=== PATIENT | male | born 1995 | race Two or more races ===

== ENCOUNTER 2022-09-01 21:09 | Emergency (ER) | payer MEDICAID, SELFPAY ==
[2022-09-01] VITALS (11 sets, daily range): BP systolic 159–179; BP diastolic 86–116; PULSE 110–129; RESP 14–16; TEMP 36.2; O2SAT 94–99
--- NOTE | 2022-09-01 21:36 | ED.GENADULT ---
HPI - General Adult General Chief complaint: Overdose Stated complaint: Weakness,Diziness Time Seen by Provider: 09/01/22 21:22 History of Present Illness HPI narrative: 27-year-old young man accompanied by his dad with initial concern presented as overdose however it appears that he is really and withdrawal. This is what Modesta tells me in any case. Took a couple tabs of fentanyl of uncertain mg last yesterday about 24 hours ago and unable to find more today and with some interest in sobriety has been having racing heart vomiting diarrhea abdominal cramps today. Last had Suboxone about 2 years ago he thinks. Out of treatment about a year and a half ago. Has been using for at least the last 5 months. Father is aware more recently. Has been more lately staying with dad. Denies any other ingestions recently. Did overdose once in the past and was found by bystander. Does not sound as though this is occurred recently. Took last clonidine 3 days ago. Related Data Home Medications Medication Instructions Recorded Confirmed clonidine HCl 0.2 mg tablet mg 09/01/22 methimazole 10 mg tablet mg 09/01/22 metoprolol succinate 25 mg mg PO 09/01/22 tablet,extended release 24 hr propranolol 20 mg tablet mg 09/01/22 Previous Rx's Medication Instructions Recorded buprenorphine 4 mg-naloxone 1 mg 1 film sublingual DAILY opiate 09/02/22 sublingual film (Suboxone) withdrawal #8 ea clonidine HCl 0.2 mg tablet 0.2 mg PO BID PRN withdrawal 09/02/22 symptoms #20 tabs ondansetron 4 mg disintegrating 4 mg PO Q4-6H PRN nausea and 09/02/22 tablet vomiting #15 tabs trazodone 50 mg tablet 50 - 100 mg PO QHS PRN sleep #15 09/02/22 tabs Allergies Allergy/AdvReac Type Severity Reaction Status Date / Time No Known Drug Allergies Allergy Verified 09/01/22 21:47 Review of Systems Status of ROS: Reports: 6 or more systems reviewed and unremarkable except as noted in History and below PFSH PFSH Social History Smoking Status: Current every day smoker What tobacco products do you use: cigarettes Do you use any of these nicotine containing products: Vaping Products How often do you have a drink containing alcohol: never How often do you have six or more drinks on one occasion: Never AUDIT-C Alcohol total score: 0 Non-prescribed substance use: opiods/painkillers service: No Exam Narrative: Exam Narrative: Rather thin. Alert and supporting own airway. Oropharynx is sticky. There are some subtle tattoo id blue points at right upper eyelid. Prominently though similarly colored vasculature on the left eyelid. Pupils are brisk and reactive, not constricted. There is rhinorrhea. Lungs appear to be clear. Tachypneic. He is tachycardic in a regular rhythm. Abdomen is flat soft and generally moderately tender. No masses appreciated. Extremities are also thin and without edema. Skin is little clammy in locations. Gooseflesh evident. Const: Vital Signs, click to edit/add: Vital Signs - 24 hr 09/01/22 21:19 09/01/22 21:57 09/01/22 22:30 Temperature 97.2 F L Pulse Rate Pulse Rate [Pulse Oximeter] 113 H Respiratory Rate 16 Blood Pressure Blood Pressure [Ri ght Upper Arm] 159/95 H 167/93 H Pulse Oximetry 97 99 96 Oxygen Delivery Ok thod Room Air Room Air 09/01/22 22:00 09/01/22 21:45 09/01/22 21:30 Temperature Pulse Rate Pulse Rate [Pulse Oximeter] 110 H 111 H 115 H Respiratory Rate 14 16 16 Blood Pressure Blood Pressure [Ri ght Upper Arm] 161/86 H 166/100 H 165/105 H Pulse Oximetry 98 98 94 Oxygen Delivery Ok thod Room Air Room Air Room Air 09/01/22 21:20 09/01/22 23:17 09/01/22 23:21 Temperature Pulse Rate 117 H 120 H Pulse Rate [Pulse Oximeter] 125 H Respiratory Rate 16 Blood Pressure 179/101 H Blood Pressure [Ri ght Upper Arm] 176/116 H Pulse Oximetry 96 98 98 Oxygen Delivery Ok thod Room Air Room Air 09/01/22 23:30 09/01/22 23:31 09/02/22 00:00 Temperature Pulse Rate 122 H 129 H 121 H Pulse Rate [Pulse Oximeter] Respiratory Rate Blood Pressure 164/98 H Blood Pressure [Ri ght Upper Arm] Pulse Oximetry 97 98 97 Oxygen Delivery Ok thod Room Air 09/02/22 00:02 09/02/22 01:31 09/02/22 03:13 Temperature Pulse Rate 137 H Pulse Rate [Pulse Oximeter] 131 H 115 H Respiratory Rate 22 22 Blood Pressure 166/118 H Blood Pressure [Ri ght Upper Arm] 154/102 H 166/108 H Pulse Oximetry 99 98 Oxygen Delivery Me thod Room Air Documenting provider has reviewed patient's vital signs: yes Course Vital Signs Vital signs: Initial Vital Signs Temperature 97.2 F L 09/01/22 21:19 Temperature Source Temporal Artery Scan 09/01/22 21:19 Blood Pressure 159/95 H 09/01/22 21:19 Blood Pressure Mean 116 09/01/22 21:19 Blood Pressure Position Sitting 09/01/22 21:19 Pulse Oximetry 97 09/01/22 21:19 Oxygen Delivery Method 09/01/22 21:19 Vital Signs Temperature 97.2 F L 09/01/22 21:19 Blood Pressure 159/95 H 09/01/22 21:19 Pulse Oximetry 97 09/01/22 21:19 Oxygen Delivery Method 09/01/22 21:19 Temperature 97.2 F L 09/01/22 21:19 Pulse Rate 115 H 09/02/22 03:13 Respiratory Rate 22 09/02/22 03:13 Blood Pressure 166/108 H 09/02/22 03:13 Pulse Oximetry 98 09/02/22 01:31 Oxygen Delivery Method 09/02/22 01:31 Medical Decision Making MDM Narrative Medical decision making narrative: We discussed locating supported detox. Tato has detoxed he says in [place] and believe another location this [facility]. He is not willing to go to detox preferring to do this at home at this time. We had discussed potential Suboxone dosing. He says further that he is done with this, wanting nothing more to do with opiates otherwise. Just takes everything from you he says. 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 Does appear to be withdrawing; I do not see evidence of overdose. He does vomit here in the emergency department. IV fluids are given. And over time given a couple of doses of lorazepam along with hyoscyamine, Zofran and hydroxyzine and propranolol. Remains moderately tachycardic during time in the emergency department as well as hypertensive. Appears uncomfortable but stable. After longer conversation with Tato and his dad he would be interested in having Suboxone available. I am willing to prescribe a few days of this but would recommend location of next prescription in outpatient setting before he initiates his treatment. He expressed appropriate concern as would have to taper or withdraw from this as well. He may instead prefer to cold turkey this withdrawal with the propranolol he has available along with antiemetics and/or refilled clonidine. I also provided naloxone prescriptions. Lab Data Lab results reviewed: Yes I reviewed the patient's lab results Labs: Lab Results 09/01/22 09/01/22 09/02/22 Range/Units 21:25 21:25 01:10 VBG pH 7.502 H (7.32-7.43) VBG pCO2 33 L (40-50) mmHG VBG pO2 65.4 H (25-47) mmHG VBG HCO3 26 (21-28) mmol/L Sodium 139 (135-149) mmol/L Potassium 3.2 L (3.6-5.1) mmol/L Chloride 105 (96-114) mmol/L Carbon Dioxide 24 (20-32) mmol/L BUN 13 (5-24) mg/dL Creatinine 0.4 L (0.5-1.5) mg/dL Estimated GFR 152 ml/min Glucose 135 H (60-115) mg/dL Calcium 9.7 (8.4-10.6) mg/dL Magnesium 1.6 (1.5-2.6) mg/dL Total Bilirubin 0.8 (0.1-1.5) mg/dL Direct Bilirubin 0.1 (0.0-0.5) mg/dL AST 30 (12-35) U/L ALT 35 (4-50) U/L Alkaline Phosphatase 140 (40-150) U/L Total Protein 7.6 (6.0-8.3) g/dL Albumin 4.3 (3.3-5.0) g/dL Urine Opiates Screen Negative (Negative) Ur Oxycodone Screen Negative (Negative) Urine Methadone Screen Negative (Negative) Ur Propoxyphene Screen Negative (Negative) Ur Barbiturates Screen Negative (Negative) U Tricyclic Antidepress Negative (Negative) Ur Phencyclidine Scrn Negative (Negative) Ur Amphetamines Screen Negative (Negative) U Methamphetamines Scrn Negative (Negative) U Benzodiazepines Scrn Negative (Negative) Urine Cocaine Screen Negative (Negative) U Marijuana (THC) Screen Negative (Negative) Ur Drug Screen Comment See Note ECG Data Attestation: I personally reviewed and interpreted this ECG as follows: (Sinus tachycardia at a rate of 115. Amplified signal I would say consistent with thin chest and tachycardia ) Discharge Plan Discharge Clinical Impression: Opiate withdrawal Patient Disposition: Home w/ Parent or Adult Condition: Stable Additional Instructions: I do very much support your efforts at trying to be free of opiates by going cold turkey. I understand you still have propranolol. Am refilling clonidine as an alternative. Zofran dissolvable for nausea. If however you prefer to move toward Suboxone, you are aware that at some point you will likely need to come off the Suboxone as well. Furthermore you will need more dosing. Before you actually initiate treatment with Suboxone, I would recommend having a follow-up clinic appointment in order to continue dosing. See again in the packet of information for phone numbers to call. Suboxone providers/clinics that might be more convenient for you can be located online with a quick search. The Suboxone can be dosed once daily. Would repeat once in 2 hours if intolerable withdrawal symptoms remain. While I am hopeful regarding your efforts at sobriety, please see this packet of information regarding naloxone. You may pick this up and be educated on its use at [facility]. Prescriptions: New clonidine HCl 0.2 mg tablet 0.2 mg PO BID PRN (Reason: withdrawal symptoms) Qty: 20 0RF buprenorphine-naloxone [Suboxone] 4-1 mg film 1 film sublingual DAILY MDD 2 Qty: 8 0RF ondansetron 4 mg tablet,disintegrating 4 mg PO Q4-6H PRN (Reason: nausea and vomiting) Qty: 15 0RF Rx Instructions: dissolve in mouth trazodone 50 mg tablet 50 - 100 mg PO QHS PRN (Reason: sleep) Qty: 15 0RF No Action clonidine HCl 0.2 mg tablet metoprolol succinate 25 mg tablet extended release 24 hr PO methimazole 10 mg tablet propranolol 20 mg tablet Follow Up/Referrals: Provider,Not a Local [Primary Care Provider] - Stand Alone Forms: [facility] Instructions
[2022-09-01] MEDS: 0.9 % SODIUM CHLORIDE 1000 ml 1,000 ML IV ×2 (21:41→23:46)
[2022-09-01 21:45] LABS: HCO3 VBG 26 mmol/L (21-28); PCO2 VBG 33 mmHG (40-50); PO2 VBG 65.4 mmHG (25-47); pH VBG 7.502 (7.32-7.43)
[2022-09-01] MEDS: ONDANSETRON 2 MG/ML inj 4 MG IVP (21:50)
[2022-09-01] MEDS: HYOSCYAMINE SULFATE 0.125 MG TAB 0.25 MG SUBLINGUAL (21:51)
[2022-09-01] MEDS: hydrOXYzine pamoate 25 MG CAPSULE 50 MG PO (21:52)
[2022-09-01] MEDS: LORazepam 2 MG/ML inj 1 MG IVP (21:53)
[2022-09-01 22:52] LABS: Albumin* 4.3 g/dL (3.3-5.0); Chloride* 105 mmol/L (96-114); Potassium* 3.2 mmol/L (3.6-5.1); Sodium* 139 mmol/L (135-149)
[2022-09-01 22:54] LABS: Creatinine* 0.4 mg/dL (0.5-1.5); Estimated Glomerular Filt Rate 152 ml/min
[2022-09-01 22:55] LABS: Alanine Aminotransferase* 35 U/L (4-50); Alkaline Phosphatase* 140 U/L (40-150); Aspartate Amino Transferase* 30 U/L (12-35); Bilirubin Direct* 0.1 mg/dL (0.0-0.5); Bilirubin Total* 0.8 mg/dL (0.1-1.5); Blood Urea Nitrogen* 13 mg/dL (5-24); Calcium* 9.7 mg/dL (8.4-10.6); Carbon Dioxide* 24 mmol/L (20-32); Glucose* 135 mg/dL (60-115); Magnesium* 1.6 mg/dL (1.5-2.6); Total Protein* 7.6 g/dL (6.0-8.3)
[2022-09-02] VITALS: PULSE 121; O2SAT 97
[2022-09-02 00:02] VITALS: BP 166/118; PULSE 137; O2SAT 99
[2022-09-02] MEDS: PROMETHAZINE 25 MG/ML INJ 12.5 MG IVP (00:03)
--- NOTE | 2022-09-02 00:26 | ED.NURSE ---
Patient had a large emesis--700ml. MD updated. Patient continues to be tachycardic
[2022-09-02] MEDS: LORazepam 2 MG/ML inj 1 MG IVP (01:03)
[2022-09-02 01:23] LABS: Amphetamine Screen Urine Negative (Negative); Barbiturate Screen Urine Negative (Negative); Benzodiazepines Screen Urine Negative (Negative); Cannabinoid Screen Urine Negative (Negative); Cocaine Screen Urine Negative (Negative); Methadone Screen Urine Negative (Negative); Methamphetamines Screen Urine Negative (Negative); Opiate Screen Urine Negative (Negative); Oxycodone Screen Urine Negative (Negative); Phencyclidine Screen Urine Negative (Negative); Tricyclic Antidepressant Urine Negative (Negative)
[2022-09-02] MEDS: PROPRANOLOL 20 MG TABLET PO (01:26)
[2022-09-02 01:31] VITALS: BP 154/102; PULSE 131; RESP 22; O2SAT 98
[2022-09-02 03:13] VITALS: BP 166/108; PULSE 115; RESP 22
--- NOTE | 2022-09-02 03:26 | ED.NURSE ---
Patient discharged to home with father. Father provided with paper script for Suboxone, [facility] folder with Narcan prescription and discharge paperwork. They verbalized understanding and all questions were answered.
[2022-09-02] MEDS: ONDANSETRON 2 MG/ML inj 4 MG IVP (06:52)
== END 2022-09-02 03:25 | disposition home or self-care (01) ==
PROVIDERS: Emergency Provider Family Medicine
DX: F11.23 Opioid dependence with withdrawal (principal)
CPT/HCPCS: 36415; 80048; 80076; 80306; 82803; 83735; 94761; 96372; 96374; 96375; 99284; A9270; J2060; J2405; J2550; J7030

== ENCOUNTER 2022-10-22 15:46 | Emergency (ER) | payer MEDICAID, SELFPAY ==
[2022-10-22 15:55] VITALS: BP 148/87; PULSE 98; RESP 16; TEMP 37; O2SAT 95; BMI 21.0
--- NOTE | 2022-10-22 16:11 | ED.GENADULT ---
HPI - General Adult General Chief complaint: Unspecified Complaint, Adult Stated complaint: High BP Time Seen by Provider: 10/22/22 15:53 Source: patient Mode of arrival: ambulatory Limitations: no limitations History of Present Illness HPI narrative: 27-year-old male coming in today requesting a refill of his clonidine 0.2 mg p.o. b.i.d., propanolol 20 mg p.o. b.i.d., and methimazole 10 mg p.o. daily. Patient was just released from [facility] yesterday and states that he was released without any of his medications. He has gone 1 and half days without his medications. Before that he was taking them regularly. He has no concerns today. He does have an appointment scheduled with primary care next Tuesday. Patient does have a history of opioid withdrawals, Graves disease. Related Data Home Medications Medication Instructions Recorded Confirmed clonidine HCl 0.2 mg tablet mg 09/01/22 methimazole 10 mg tablet mg 09/01/22 propranolol 20 mg tablet mg 09/01/22 Previous Rx's Medication Instructions Recorded buprenorphine 4 mg-naloxone 1 mg 1 film sublingual DAILY opiate 09/02/22 sublingual film (Suboxone) withdrawal #8 ea clonidine HCl 0.2 mg tablet 0.2 mg PO BID PRN withdrawal 09/02/22 symptoms #20 tabs ondansetron 4 mg disintegrating 4 mg PO Q4-6H PRN nausea and 09/02/22 tablet vomiting #15 tabs trazodone 50 mg tablet 50 - 100 mg PO QHS PRN sleep #15 09/02/22 tabs clonidine HCl 0.2 mg tablet 0.2 mg PO BID #30 tabs 10/22/22 methimazole 10 mg tablet 10 mg PO DAILY #14 tabs 10/22/22 propranolol 20 mg tablet 20 mg PO BID #30 tabs 10/22/22 Allergies Allergy/AdvReac Type Severity Reaction Status Date / Time No Known Drug Allergies Allergy Verified 09/01/22 21:47 Review of Systems Status of ROS: Reports: 10 or more systems reviewed and unremarkable except as noted in History and below PFSH PFS Social History Smoking Status: Current every day smoker What tobacco products do you use: cigarettes Do you use any of these nicotine containing products: Vaping Products How often do you have a drink containing alcohol: never How often do you have six or more drinks on one occasion: Never AUDIT-C Alcohol total score: 0 Non-prescribed substance use: opiods/painkillers service: No Exam Narrative: Exam Narrative: Well-nourished well-developed patient in no acute distress. Alert and oriented. Answers questions appropriately. Mood and affect are appropriate. Thoughts are goal oriented and rational. No tangential or magical thinking noted. Patient speaks in full sentences without needing to catch his breath. Speech is not slurred or pressured. HEENT: Normocephalic atraumatic. Pupils are equally round reactive to light. Extraocular muscles are intact. He does have exophthalmos bilaterally. Conjunctivae are moist without any icterus noted. Cardiovascular: Heart is regular rate and rhythm Lungs: Clear to auscultation bilaterally Skin: Well perfused without any obvious rashes, multiple tattoos. Const: Vital Signs, click to edit/add: Vital Signs - 24 hr 10/22/22 15:55 Temperature 98.6 F Pulse Rate [Pulse Oximeter] 98 Respiratory Rate 16 Blood Pressure [Le ft Upper Arm] 148/87 H Pulse Oximetry 95 Oxygen Delivery Me thod Room Air Course Vital Signs Vital signs: Initial Vital Signs Temperature 98.6 F 10/22/22 15:55 Temperature Source Temporal Artery Scan 10/22/22 15:55 Pulse Rate 98 10/22/22 15:55 Pulse Rhythm 10/22/22 15:55 Respiratory Rate 16 10/22/22 15:55 Blood Pressure 148/87 H 10/22/22 15:55 Blood Pressure Mean 107 10/22/22 15:55 Blood Pressure Position Sitting 10/22/22 15:55 Pulse Oximetry 95 10/22/22 15:55 Oxygen Delivery Method 10/22/22 15:55 Vital Signs Temperature 98.6 F 10/22/22 15:55 Pulse Rate 98 10/22/22 15:55 Respiratory Rate 16 10/22/22 15:55 Blood Pressure 148/87 H 10/22/22 15:55 Pulse Oximetry 95 10/22/22 15:55 Oxygen Delivery Method 10/22/22 15:55 Temperature 98.6 F 10/22/22 15:55 Pulse Rate 98 10/22/22 15:55 Respiratory Rate 16 10/22/22 15:55 Blood Pressure 148/87 H 10/22/22 15:55 Pulse Oximetry 95 10/22/22 15:55 Oxygen Delivery Method 10/22/22 15:55 Medical Decision Making MDM Narrative Medical decision making narrative: 27-year-old male recently released from [facility] without his medications. Will go ahead and refill them for 2 weeks. That should give him plenty of time as he does have an appointment already scheduled for next week. Patient was agreeable and had no other questions. Discharge Plan Discharge Clinical Impression: Encounter for medication refill Patient Disposition: Home, Self-Care Condition: Stable Additional Instructions: Follow-up with primary care as scheduled. Consider following up with controls engineer as well. Prescriptions: New clonidine HCl 0.2 mg tablet 0.2 mg PO BID Qty: 30 0RF propranolol 20 mg tablet 20 mg PO BID Qty: 30 0RF methimazole 10 mg tablet 10 mg PO DAILY Qty: 14 0RF No Action clonidine HCl 0.2 mg tablet methimazole 10 mg tablet propranolol 20 mg tablet clonidine HCl 0.2 mg tablet 0.2 mg PO BID PRN (Reason: withdrawal symptoms) Qty: 20 0RF buprenorphine-naloxone [Suboxone] 4-1 mg film 1 film sublingual DAILY MDD 2 Qty: 8 0RF ondansetron 4 mg tablet,disintegrating 4 mg PO Q4-6H PRN (Reason: nausea and vomiting) Qty: 15 0RF Rx Instructions: dissolve in mouth trazodone 50 mg tablet 50 - 100 mg PO QHS PRN (Reason: sleep) Qty: 15 0RF Follow Up/Referrals: Provider,Not a Local [Primary Care Provider] - Stand Alone Forms: [facility] Info Instructions
== END 2022-10-22 16:35 | disposition home or self-care (01) ==
LOC: ED 16:23
PROVIDERS: Emergency Provider Family Medicine; PCP Family Medicine
DX: Z76.0 Encounter for issue of repeat prescription (principal)
CPT/HCPCS: 99282; 99283

== ENCOUNTER 2022-12-21 11:55 | Emergency (ER) | payer MEDICAID, SELFPAY ==
[2022-12-21 12:01] VITALS: BP 153/92; PULSE 120; RESP 18; TEMP 36.5; O2SAT 98; BMI 24.4
--- NOTE | 2022-12-21 12:13 | CRLHL7_ITS ---
For Patients: As a result of the Cures Act, medical imaging exams and procedure reports are released immediately into your electronic medical record. You may view this report before your referring provider. If you have questions, please contact your health care provider. INDICATION: Back pain TECHNIQUE: Thoracic spine 3 view COMPARISON: None FINDINGS: Bones: No evidence of fracture. 6 degree rightward curvature of the upper thoracic spine. Joints: Disc spaces and facets are unremarkable. Soft tissues: Unremarkable. IMPRESSION: Mild rightward curvature upper thoracic spine, otherwise unremarkable thoracic spine series. Dictated by Guillermo Jasmine MD @ 12/21/2022 1:20:39 PM (Electronically Signed)
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
[2022-12-21 13:13] VITALS: BP 137/77; PULSE 111; O2SAT 98
== END 2022-12-21 13:37 | disposition home or self-care (01) ==
PROVIDERS: Emergency Provider Family Medicine
DX: M54.6 Pain in thoracic spine (principal)
CPT/HCPCS: 72070; 99283

== ENCOUNTER 2024-03-20 11:06 | Emergency (ER) | payer SELFPAY ==
[2024-03-20 11:10] VITALS: BP 135/78; PULSE 97; RESP 18; TEMP 36.2; O2SAT 96; BMI 26.6
--- NOTE | 2024-03-20 11:36 | CRLHL7_ITS ---
For Patients: As a result of the Cures Act, medical imaging exams and procedure reports are released immediately into your electronic medical record. You may view this report before your referring provider. If you have questions, please contact your health care provider. INDICATION: Low back pain. TECHNIQUE: Lumbar spine two views. COMPARISON: None. FINDINGS: No acute fracture or malalignment. No additional osseous abnormality. Soft tissues as imaged are unremarkable. IMPRESSION: Unremarkable lumbar radiographs. Dictated by Iván Gomez MD @ 03/20/2024 12:02:44 PM (Electronically Signed)
--- NOTE | 2024-03-20 11:43 | ED.BACK ---
HPI - Back Pain/Injury General Date Seen: 03/20/24 Chief Complaint: Back Injury/Pain Stated Complaint: lower back pain Time Seen by Provider: 03/20/24 11:07 Source: patient Mode of arrival: ambulatory Limitations: no limitations History of Present Illness HPI Narrative: Patient is a 28-year-old male presenting to the emergency department for low back pain. Pain is mostly in the left paraspinal muscles but he is having some midline back pain also. States he woke up at about 02:30 with this pain. He tried to take some ibuprofen and Tylenol without any improvement. He laid back down and pain continued into this morning. States he has a history of having sciatic on the past and this feels similar but worse. Denies saddle anesthesia, urinary retention, loss of bowel or bladder control, fevers. Has history of IV drug use but states he has been clean for 8 and half months. 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 Related Data Home Medications ?Medication ?Instructions ?Recorded ?Confirmed methimazole 10 mg tablet 20 mg 09/01/22 propranolol 20 mg tablet mg 09/01/22 Previous Rx's ?Medication ?Instructions ?Recorded ondansetron 4 mg disintegrating 4 mg PO Q4-6H PRN nausea and 09/02/22 tablet vomiting #15 tabs methimazole 10 mg tablet 10 mg PO DAILY #14 tabs 10/22/22 propranolol 20 mg tablet 20 mg PO BID #30 tabs 10/22/22 cyclobenzaprine 10 mg tablet 10 mg PO TID PRN muscle spasm #15 03/20/24 tabs ketorolac 10 mg tablet 10 mg PO Q6H #20 tabs 03/20/24 Allergies Allergy/AdvReac Type Severity Reaction Status Date / Time No Known Drug Allergies Allergy Verified 03/20/24 11:13 Review of Systems Narrative: Pertinent systems reviewed and were negative unless stated in HPI PFSH PFSH Social History Smoking Status: Current every day smoker What tobacco products do you use: cigarettes Do you use any of these nicotine containing products: Vaping Products How often do you have a drink containing alcohol: never How often do you have six or more drinks on one occasion: Never AUDIT-C Alcohol total score: 0 Non-prescribed substance use: opiods/painkillers service: No Exam Narrative: Exam Narrative: Const: Well-nourished, Well-developed, in mild distress Eyes: PERRL, no conjunctival injection, and symmetrical lids HENT: Atraumatic external nose and ears. Moist mucous membranes. MSK:Extremities w/o deformity, Tenderness noted to left paraspinal muscles and also some midline tenderness at about L2 and again At around L4. Skin: Warm, Dry. No rashes or lesions. Neuro: Normal Muscle tone, No focal neurological deficits. Psych: Awake, Alert, & Oriented x3. Appropriate mood and affect. Const: Vital Signs, click to edit/add: Vital Signs - 24 hr 03/20/24 11:10 Temperature 97.2 F L Pulse Rate [Right Pulse Oximeter] 97 Respiratory Rate 18 Blood Pressure [Ri ght Upper Arm] 135/78 Pulse Oximetry 96 Oxygen Delivery Me thod Room Air Course Vital Signs Vital signs: Initial Vital Signs Temperature 97.2 F L 03/20/24 11:10 Temperature Source Temporal Artery Scan 03/20/24 11:10 Pulse Rate 97 03/20/24 11:10 Pulse Rhythm Regular 03/20/24 11:10 Respiratory Rate 18 03/20/24 11:10 Blood Pressure 135/78 03/20/24 11:10 Blood Pressure Mean 97 03/20/24 11:10 Blood Pressure Position Sitting 03/20/24 11:10 Pulse Oximetry 96 03/20/24 11:10 Oxygen Delivery Method Room Air 03/20/24 11:10 Vital Signs Temperature 97.2 F L 03/20/24 11:10 Pulse Rate 97 03/20/24 11:10 Respiratory Rate 18 03/20/24 11:10 Blood Pressure 135/78 03/20/24 11:10 Pulse Oximetry 96 03/20/24 11:10 Oxygen Delivery Method Room Air 03/20/24 11:10 Temperature 97.2 F L 03/20/24 11:10 Pulse Rate 97 03/20/24 11:10 Respiratory Rate 18 03/20/24 11:10 Blood Pressure 135/78 03/20/24 11:10 Pulse Oximetry 96 03/20/24 11:10 Oxygen Delivery Method Room Air 03/20/24 11:10 Medications Administered Medications: Discontinued Medications Generic Name Dose Route Start Last Admin Trade Name Freq PRN Reason Stop Dose Admin Cyclobenzaprine HCl 10 mg 03/20/24 11:36 03/20/24 11:53 Cyclobenzaprine Hcl 10 Mg Tablet PO 03/20/24 11:37 10 mg ONCE ONE Administration Ketorolac Tromethamine 30 mg 03/20/24 11:36 03/20/24 11:52 Ketorolac 30 Mg/Ml Inj IM 03/20/24 11:37 30 mg ONCE ONE Administration MDM - Back Pain/Injury MDM Narrative Medical decision making narrative: patient is a 28-year-old male presenting for low back pain. While most the pain is paraspinal he does have some midline tenderness does do a lot of manual labor. Will do an x-ray to make sure there are no occult fractures. I will also give him Toradol for pain along with Flexeril. he had some mild improvement in his symptoms. X-ray showed no concerning findings. I will discharge him at this time. Most likely a back strain. Imaging Data X-ray lumbar spine: Attestation: I have reviewed the pertinent imaging results. Radiologist's impression: Unremarkable lumbar radiographs. Dictated by Iván Gomez MD @ 03/20/2024 12:02:44 PM Discharge Plan Discharge Clinical Impression: Strain of lumbar region Qualifiers: Encounter type: initial encounter Qualified Code(s): S39.012A - Strain of muscle, fascia and tendon of lower back, initial encounter Patient Disposition: Home, Self-Care Condition: Stable Instructions: Low Back Strain (ED) Additional Instructions: I will prescribe be Toradol and a muscle relaxer for her back pain. do not take ibuprofen or Aleve at the same time you are taking Toradol. Return to emergency department for new or worsening symptoms. Prescriptions: New cyclobenzaprine 10 mg tablet 10 mg PO TID PRN (Reason: muscle spasm) Qty: 15 0RF ketorolac 10 mg tablet 10 mg PO Q6H Qty: 20 0RF Rx Instructions: maximum total duration of 5 days from all oral, intranasal, or parenteral formulations No Action propranolol 20 mg tablet 20 mg PO BID Qty: 30 0RF methimazole 10 mg tablet 10 mg PO DAILY Qty: 14 0RF methimazole 10 mg tablet 20 mg propranolol 20 mg tablet ondansetron 4 mg tablet,disintegrating 4 mg PO Q4-6H PRN (Reason: nausea and vomiting) Qty: 15 0RF Rx Instructions: dissolve in mouth Follow Up/Referrals: Provider,Not a Local [Primary Care Provider] - Stand Alone Forms: [facility] Info Instructions
[2024-03-20] MEDS: KETOROLAC 30 MG/ML inj IM (11:52)
[2024-03-20] MEDS: CYCLOBENZAPRINE HCL 10 MG TABLET PO (11:53)
--- OUTSIDE RECORDS SUMMARY | 2024-03-20 12:06 | XMS_ITS | Clinical Summary ---
Author Organization [facility] Address [place], [place] [address] Care Team Providers Care Court Registry Officer Name Role Phone Velasquez, [facility] - Primary C are Provider Allergies No known active allergies Medications Medication Sig Dispensed Refills Start Date End Date Status cloNIDine HCL (CATAPRES) 0.2 mg tablet Take 0.2 mg by mouth two times daily. Active methIMAzole (TAPAZOLE) 10 mg tablet Take 10 mg by mouth once daily. Active propranoloL (INDERAL) 20 mg tablet Take 20 mg by mouth two times daily. Active Active Problems Problem Noted Date Diagnosed Date SIRS (systemic inflammatory response syndrome) 0 12/31/2022 Tobacco abuse 12/31/2022 Opioid withdrawal 12/28/2022 Thyrotoxicosis 12/28/2022 Immunizations Name Administration Dates Next Due DTaP 09/16/1998,1994 DTaP-HIB (TriHIBIT) 03/15/1995,1994 Hepatitis B (Peds) 1994,1994, 994 Influenza, IIV3 (Age >=3 years) 07/12/2007 Influenza,LAIV3 Live Intrana christopher (Flumist) 06/28/2011 MMR 05/04/2007,09/16/1998 Meningococcal Vaccine (Menactra) 03/12/2009 Oral Polio Vaccine 09/16/1998, 5,1994,07/05 Tdap 03/27/2013,03/22/2006 Varicella Vaccine 05/04/2007,09/16/1998 Social History Tobacco Use Types Packs/Day Years Used Date Smoking Tobacco: Never Assessed Social Connections Answer Date Recorded Frequency of Communication with Friends and Fami ly Not on file 12/28/2022 Sex and Gender Information Value Date Recorded Sex Assigned at Not on file Gender Identity Not on file Sexual Orientation Not on file Obstetrics History Last Filed Vital Signs Vital Sign Reading Time Taken Comments Blood Pressure 150/111 04/27/2023 8:00 PM CDT Pulse 82 04/27/2023 8:00 PM CDT Temperature 37.1 ??C (98.8 ??F) 04/27/2023 6:53 PM CD T Respiratory Rate 17 04/27/2023 6:53 PM CDT Oxygen Saturation 92% 04/27/2023 8:00 PM CDT Inhaled Oxygen Concentration - - Weight 79.4 kg (175 lb) 04/27/2023 6:53 PM CDT Height 175.3 cm (5' 9) 04/27/2023 6:53 PM CDT Body Mass Index 25.84 04/27/2023 6:53 PM CDT Plan of Treatment Health Maintenance Due Date Last Done Comments Depression screening for age 12+ 2006 BMI (ht and wt on same day) for age 18+ 2012 Hepatitis C screening for ag e 18-79 2012 Tetanus booster 03/27/2023 03/27/2013, 03/22/2006 COVID-19 vaccine series ( season) 2023 Influenza for age 9-49 04/15/2024 1, 07/12/2007 Tdap Completed 03/27/2013, 03/22/2006 HIV for age 15-65 Completed 12/29/2022, 10/31/2018 Pneumococcal series for age 6-64 Aged Out No longer eligible b ased on patient's age to complete this topic Medical Devices Implanted Type Area Pantograph Transferrer Device Identifier Shelf Expiration Date Model / Serial / Lot Ancr Sut Sm Bone [id number] Fiberwire - [id number] Implanted:Qty: 1 on 03/13/2009 at [facility] Left: Wrist [employer] 01/13/2013 [id number] / / [id number] Procedures Procedure Name Priority Date/Time Associated Diagnosis Comments LC HIV-1/O/2, 4TH GENERATION APRIL 12/29/2022 11:00 AM CDT from Last 3 Months or Most Recently Relevant to Health Maintenance Results * LC HIV-1/O/2, 4TH GENERATION (12/29/2022 11:00 AM CDT) HIV Scr 4th Gen Non Reactive Non Reactive 12/31/2022 1:09 PM CDT [facility] ([facility]) Comment: HIV Negative HIV-1/HIV-2 antibodies and HIV-1 p24 antigen were NOT detected. There is no laboratory evidence of HIV infection. Blood BLOOD SPECIMEN / Unknown Venipuncture / Unknown 12/29/2022 11:00 AM CDT 12/29/2022 11:06 AM CDT Narrative [facility] ([facility]) - 12/31/2022 1:09 PM CDT Performed at: ??[address] - [address] ??[id number] Motor Transport Inspector: Salas Nunes MD, Phone: ??[phone] Winter Cheney MD LABORATORY [facility] ([facility]) [address] [place] [address] from Last 3 Months or Most Recently Relevant to Health Maintenance Advance Directives * Full Code (Latest Code Status on File) Date Activated Date Inactivated Comments 12/28/2022 9:06 PM 12/30/2022 2:00 AM Question Answer Comments Code Status Discussion: Reviewed Preferences * Full Code Date Activated Date Inactivated Comments 03/13/2009 6:42 AM 03/13/2009 7:45 PM * Full Code Date Activated Date Inactivated Comments 03/11/2009 11:36 AM 03/13/2009 6:[address] Registry Officer Relationship Specialty Start Date End [facility] [address] [place] [id number] PCP - General Family Practice 04/27/23
== END 2024-03-20 13:06 | disposition home or self-care (01) ==
PROVIDERS: Emergency Provider Student in an Organized Health Care Education/Training Program
DX: I38 Endocarditis, valve unspecified (principal); N28.0 Ischemia and infarction of kidney
CPT/HCPCS: 72100; 96372; 99282; 99285; A9270; J1885

== ENCOUNTER 2024-03-29 16:11 | Emergency (ER) | payer SELFPAY ==
[2024-03-29] VITALS (22 sets, daily range): BP systolic 128–149; BP diastolic 72–119; PULSE 93–128; RESP 18; TEMP 36.2–39.9; O2SAT 91–100; BMI 26.6
--- NOTE | 2024-03-29 16:51 | CRLHL7_ITS ---
For Patients: As a result of the Century Cures Act, medical imaging exams and procedure reports are released immediately into your electronic medical record. You may view this report before your referring provider. If you have questions, please contact your health care provider. INDICATION: Bilateral flank pain. TECHNIQUE: CT abdomen and pelvis acquired with 89 mL Isovue 370 contrast. COMPARISON: None available. FINDINGS: Lower chest: Subpleural 2.0 cm opacity with internal air lucencies in the right lower lobe, appearance is worrisome for a pulmonary infarct. Liver: No suspicious focal hepatic lesion. Mild periportal edema. Mild hepatomegaly. Gallbladder and bile ducts: Diffuse circumferential gallbladder wall edema. No calcified gallstones, no significant gallbladder distention. Pancreas: Unremarkable. Spleen: Mild splenomegaly, spleen measures up to 14.5 cm. Adrenal glands: Unremarkable. Kidneys: Wedge-shaped cortical hypoenhancement involving the upper pole of the right kidney. No hydronephrosis bilaterally. Simple appearing cyst in the upper pole of the left kidney. Retroperitoneum: No lymphadenopathy. Bowel and mesentery: Bowel is not obstructed. No significant ascites, no pneumoperitoneum. Normal appendix. Long segment mild colitis involving the ascending and transverse colon. Bladder: Unremarkable for degree of distention. Reproductive organs: No significant prostatomegaly. Pelvic lymph nodes: No lymphadenopathy. Vessels: Unremarkable. Abdominal wall: No acute abdominal wall abnormality. Bones: No suspicious/aggressive focal osseous lesion. IMPRESSION: 1. Wedge-shaped cortical hypoenhancement in the upper pole of the right kidney, concerning for renal infarct. Focal pyelonephritis less likely, correlate with urinalysis. 2. Subpleural airspace opacity with internal air lucencies in the right lower lobe, most worrisome differential is pulmonary infarct. If there is clinical concern for pulmonary embolism, recommend further evaluation with CT PE chest. 3. Diffuse circumferential gallbladder wall edema is present, without secondary signs of acute cholecystitis, likely reactive. 4. Long segment colitis involving the ascending and transverse colon. 5. Hepatosplenomegaly. Please note that all CT scans at this facility use dose modulation, iterative reconstruction, and/or weight-based dosing when appropriate to reduce radiation dose to as low as reasonably achievable. Dictated by Shemar Rahman MD @ 03/29/2024 6:08:14 PM (Electronically Signed)
[2024-03-29 16:52] LABS: Appearance Urine Cloudy (Clear); Bilirubin Urine 1+ (Negative); Blood Urine Trace-intact (Negative); Color Urine Orange (Yellow); Glucose Urine Negative (Negative); Ketones Urine Negative (Negative); Leukocyte Esterase Urine Negative (Negative); Nitrite Urine Negative (Negative); Protein Urine 1+ (Negative); Specific Gravity Urine >= 1.030 (1.000-1.030); Urobilinogen Urine 0.2 (0.2-1.0); pH Urine 6.5 (5.0-8.5)
[2024-03-29 17:08] LABS: Amphetamine Screen Urine Negative (Negative); Barbiturate Screen Urine Negative (Negative); Benzodiazepines Screen Urine Negative (Negative); Cannabinoid Screen Urine POSITIVE (Negative); Cocaine Screen Urine Negative (Negative); Methadone Screen Urine Negative (Negative); Methamphetamines Screen Urine Negative (Negative); Opiate Screen Urine Negative (Negative); Oxycodone Screen Urine Negative (Negative); Phencyclidine Screen Urine Negative (Negative); Tricyclic Antidepressant Urine Negative (Negative)
[2024-03-29 17:10] LABS: Bacteria Urine Few; RBC Urine 0-2 (0-2)
[2024-03-29] MEDS: ONDANSETRON 2 MG/ML inj 4 MG IVP (17:10)
[2024-03-29] MEDS: KETOROLAC 15 MG/ML inj IVP (17:10)
[2024-03-29] MEDS: LACTATED RINGERS 1000 ML 1,000 ML IV (17:10)
[2024-03-29 17:11] LABS: Amorphous Sediment Urine Moderate; Mucus Urine Few
[2024-03-29 17:22] LABS: Basophils Percent Auto 0.1 % (0.0-3.0); Eosinophils Percent Auto 0.2 % (0.0-7.0); Hemoglobin* 12.3 gm/dL (13.5-17.5); Immature Granulocytes Pct Auto 0.4 %; Lymphocytes Percent Auto 14.8 % (20-44); Mean Corpuscular HGB Conc 33 gm/dL (32-36); Mean Corpuscular Hemoglobin 27 pg (26-34); Mean Corpuscular Volume 80 fL (80-100); Monocytes Percent Auto 6.7 % (0.0-11.0); Neutrophils Percent Auto 77.8 % (42.0-72.0); Platelet Count* 157 K/uL (140-440); RDW Coefficient of Variation % 13.7 % (11.5-15.5); Red Blood Count 4.61 m/uL (4.30-5.90); White Blood Count* 14.09 K/uL (4.50-11.00)
--- OUTSIDE RECORDS SUMMARY | 2024-03-29 17:26 | XMS_ITS | Clinical Summary ---
Author Organization [employer] [facility] Address [place], [place] [address] Care Team Providers Care Banking Paralegal Name Role Phone [facility] - Primary C are Provider [...] this topic Medical Devices Implanted Type Area Art History Professor Device Identifier Shelf Expiration Date Model / Serial / Lot Ancr Sut Sm Bone [id number] Fiberwire - [id number] Implanted:Qty: 1 on 03/13/2009 at [facility] Left: Wrist [employer] 01/13/2013 [id number] # / / [id number] Procedures Procedure Name Priority Date/Time Associated Diagnosis Comments LC HIV-1/O/2, 4TH GENERATION APRIL 12/29/2022 11:00 AM CDT from Last 3 Months or Most Recently Relevant to Health Maintenance Results * LC HIV-1/O/2, 4TH GENERATION (12/29/2022 11:00 AM CDT) HIV Scr 4th Gen Non Reactive Non Reactive 12/31/2022 1:09 PM CDT [facility] ([facility]) Comment: HIV Negative HIV-1/HIV-2 antibodies and HIV-1 p24 antigen were NOT detected. There is no laboratory evidence of HIV infection. Blood BLOOD SPECIMEN / Unknown Venipuncture / Unknown 12/29/2022 11:00 AM CDT 12/29/2022 11:[address] [facility] ([facility] - 12/31/2022 1:09 PM CDT Performed at: ??01 - [address] ??[id number] [place] Department Supervisor: Salas Nunes MD, Phone: ??[phone] Winter Cheney MD LABORATORY [facility] ([facility]) [address] [place] [address] from Last 3 Months or Most Recently [...] 11:36 AM 03/13/2009 6:42 AM Care Teams Banking Paralegal Relationship Specialty Start Date End Date [facility] [address] [place] [id number] PCP - General Family Practice 04/27/23
[2024-03-29 17:39] LABS: Slide Review Reflex No
[2024-03-29 17:40] LABS: Albumin* 3.6 g/dL (3.3-5.0); Chloride* 102 mmol/L (96-114); Sodium* 137 mmol/L (135-149)
[2024-03-29 17:43] LABS: Anion Gap 9 mEq/L (7-15); Bilirubin Total* 2.3 mg/dL (0.1-1.5); Carbon Dioxide* 26 mmol/L (20-32); Creatinine* 0.6 mg/dL (0.5-1.5); Est. Creatinine Clearance* 181.66; Estimated Glomerular Filt Rate 134 ml/min
[2024-03-29 17:44] LABS: Alanine Aminotransferase* 31 U/L (4-50); Alkaline Phosphatase* 272 U/L (40-150); Aspartate Amino Transferase* 40 U/L (12-35); Blood Urea Nitrogen* 13 mg/dL (5-24); Calcium* 8.9 mg/dL (8.4-10.6); Glucose* 143 mg/dL (60-115); Lipase* 26 U/L (23-300); Total Protein* 7.2 g/dL (6.0-8.3)
[2024-03-29] MEDS: KETAMINE HCL 100 MG/ML inj 20 MG IVP (17:50)
--- NOTE | 2024-03-29 17:57 | ED_ITS ---
HPI - General Adult General Chief complaint: Back Injury/Pain Stated complaint: Severe back pain, low temp Time Seen by Provider: 03/29/24 16:37 Source: patient Mode of arrival: ambulatory Limitations: no limitations History of Present Illness HPI narrative: Patient is a 28-year-old male presenting for low back pain. Pain is the bilateral low back along with midline. Goes up to about L1 or L2 region. States pain is severe and has gotten worse over the past 2 days. Has been so severe is causing him to become nauseated and vomiting. Was seen a few weeks ago for this back pain with the 1st started in the last time was just on the left side and he describes it is similar to his previous sciatica. X-ray showed no concerning abnormalities use discharged home with Toradol and Flexeril he said did help. Now the pain is becoming much worse and nothing takes at home make it better. He has seen a chiropractor and physical therapy without any improvements. Patient denies saddle anesthesia, incontinence, urinary retention. States he has not used IV drugs now for at least 8 months. Does admit to marijuana use. Denies fevers, chills, shortness of breath, abdominal pain. It is states he had episode of chest pain yesterday that has since resolved. Related Data Home Medications ?Medication ?Instructions ?Recorded ?Confirmed methimazole 10 mg tablet 20 mg 09/01/22 propranolol 20 mg tablet mg 09/01/22 Previous Rx's ?Medication ?Instructions ?Recorded ondansetron 4 mg disintegrating 4 mg PO Q4-6H PRN nausea and 09/02/22 tablet vomiting #15 tabs methimazole 10 mg tablet 10 mg PO DAILY #14 tabs 10/22/22 propranolol 20 mg tablet 20 mg PO BID #30 tabs 10/22/22 cyclobenzaprine 10 mg tablet 10 mg PO TID PRN muscle spasm #15 03/20/24 tabs ketorolac 10 mg tablet 10 mg PO Q6H #20 tabs 03/20/24 Allergies Allergy/AdvReac Type Severity Reaction Status Date / Time No Known Drug Allergies Allergy Verified 03/29/24 18:51 Review of Systems Status of ROS: Reports: 10 or more systems reviewed and unremarkable except as noted in History and below PFSH PFSH Social History Smoking Status: Current every day smoker What tobacco products do you use: cigarettes Do you use any of these nicotine containing products: Vaping Products Second hand tobacco smoke exposure: No How often do you have a drink containing alcohol: never How often do you have six or more drinks on one occasion: Never AUDIT-C Alcohol total score: 0 Non-prescribed substance use: former substance user Non-prescribed substance use details: former opioid user service: No Exam Narrative: Exam Narrative: Const: Well-nourished, Well-developed, in severe distress Eyes: PERRL, no conjunctival injection, and symmetrical lids HENT: Atraumatic external nose and ears. Moist mucous membranes. Neck: Symmetric, trachea midline, No thyromegaly. CVS: RRR, No murmurs or gallops. Peripheral pulses 2+ and equal in all extremities RESP: Unlabored respiratory effort. Clear to auscultation bilaterally. GI: Nontender/Nondistended, No rebound or guarding. MSK:Extremities w/o deformity, severe tenderness noted to bilateral paraspinal regions up to about the L1 region and midline back throughout the lumbar region Skin: Warm, Dry. No rashes or lesions. Neuro: Normal Muscle tone, No focal neurological deficits. Psych: Awake, Alert, & Oriented x3. Appropriate mood and affect. Const: Vital Signs, click to edit/add: Vital Signs - 24 hr 03/29/24 16:17 03/29/24 17:52 03/29/24 17:53 Temperature 97.2 F L Pulse Rate 99 104 H Pulse Rate [Right Pulse Oximeter] 93 Respiratory Rate 18 Blood Pressure 129/77 Blood Pressure [Ri ght Upper Arm] 132/72 Pulse Oximetry 96 100 99 Oxygen Delivery Me thod Room Air 03/29/24 18:00 03/29/24 18:02 03/29/24 18:20 Temperature Pulse Rate 104 H 103 H 115 H Pulse Rate [Right Pulse Oximeter] Respiratory Rate Blood Pressure 128/84 Blood Pressure [Ri ght Upper Arm] Pulse Oximetry 96 98 97 Oxygen Delivery Me thod 03/29/24 18:22 03/29/24 18:40 03/29/24 18:42 Temperature Pulse Rate 118 H 125 H 126 H Pulse Rate [Right Pulse Oximeter] Respiratory Rate Blood Pressure 144/106 H 149/102 H Blood Pressure [Ri ght Upper Arm] Pulse Oximetry 96 92 92 Oxygen Delivery Me thod 03/29/24 18:43 03/29/24 19:16 03/29/24 19:44 Temperature 103.9 F H Pulse Rate 128 H Pulse Rate [Right Pulse Oximeter] Respiratory Rate Blood Pressure 145/82 H Blood Pressure [Ri ght Upper Arm] Pulse Oximetry 91 Oxygen Delivery Me thod 03/29/24 20:02 03/29/24 20:22 03/29/24 20:28 Temperature 101.3 F H Pulse Rate Pulse Rate [Right Pulse Oximeter] Respiratory Rate Blood Pressure 130/79 149/119 H Blood Pressure [Ri ght Upper Arm] Pulse Oximetry Oxygen Delivery Me thod 03/29/24 20:42 03/29/24 20:52 03/29/24 21:02 Temperature Pulse Rate 115 H Pulse Rate [Right Pulse Oximeter] Respiratory Rate Blood Pressure 138/79 131/79 Blood Pressure [Ri ght Upper Arm] Pulse Oximetry 91 Oxygen Delivery Me thod 03/29/24 21:22 03/29/24 22:40 03/29/24 22:44 Temperature 102.9 F H Pulse Rate 118 H Pulse Rate [Right Pulse Oximeter] Respiratory Rate Blood Pressure 133/74 Blood Pressure [Ri ght Upper Arm] Pulse Oximetry 94 Oxygen Delivery Me thod 03/29/24 23:53 03/30/24 00:13 Temperature 100.6 F H Pulse Rate 105 H Pulse Rate [Right Pulse Oximeter] Respiratory Rate Blood Pressure Blood Pressure [Ri ght Upper Arm] Pulse Oximetry 93 Oxygen Delivery Me thod Course Vital Signs Vital signs: Initial Vital Signs Temperature 97.2 F L 03/29/24 16:17 Temperature Source Temporal Artery Scan 03/29/24 16:17 Pulse Rate 93 03/29/24 16:17 Respiratory Rate 18 03/29/24 16:17 Blood Pressure 132/72 03/29/24 16:17 Blood Pressure Mean 92 03/29/24 16:17 Blood Pressure Position Sitting 03/29/24 16:17 Pulse Oximetry 96 03/29/24 16:17 Oxygen Delivery Method Room Air 03/29/24 16:17 Vital Signs Temperature 97.2 F L 03/29/24 16:17 Pulse Rate 93 03/29/24 16:17 Respiratory Rate 18 03/29/24 16:17 Blood Pressure 132/72 03/29/24 16:17 Pulse Oximetry 96 03/29/24 16:17 Oxygen Delivery Method Room Air 03/29/24 16:17 Temperature 100.6 F H 03/30/24 00:13 Pulse Rate 105 H 03/29/24 23:53 Respiratory Rate 18 03/29/24 16:17 Blood Pressure 133/74 03/29/24 21:22 Pulse Oximetry 93 03/29/24 23:53 Oxygen Delivery Method Room Air 03/29/24 16:17 Medications Administered Medications: Generic Name Dose Route Start Last Admin Trade Name Freq PRN Reason Stop Dose Admin Hydromorphone HCl 0.5 mg 03/29/24 20:50 03/29/24 23:38 Hydromorphone 0.5 Mg/0.5 Ml Inj IVP 0.5 mg Q1H PRN Administration Pain IV Miscellaneous Supplies 1 each 03/29/24 19:35 03/29/24 20:10 Pharmacist Consult MC Not Given Q24H LALI Protocol Discontinued Medications Generic Name Dose Route Start Last Admin Trade Name Arlyn PRN Reason Stop Dose Admin Acetaminophen 650 mg 03/29/24 19:16 03/29/24 19:23 Acetaminophen 325 Mg Tablet PO 03/29/24 19:17 650 mg ONCE ONE Administration Acetaminophen 650 mg 03/29/24 22:50 03/29/24 22:40 Acetaminophen 325 Mg Tablet PO 03/29/24 22:51 650 mg ONCE ONE Administration Hydromorphone HCl 1 mg 03/29/24 18:21 03/29/24 18:30 Hydromorphone 0.5 Mg/0.5 Ml Inj IVP 03/29/24 18:22 1 mg ONCE ONE Administration Hydromorphone HCl 0.5 mg 03/29/24 19:32 03/29/24 19:35 Hydromorphone 0.5 Mg/0.5 Ml Inj IVP 03/29/24 19:33 0.5 mg ONCE ONE Administration Lactated Ringer's 1,000 mls @ 1,000 mls/hr 03/29/24 16:51 03/29/24 18:45 Lactated Ringers 1000 Ml IV 03/29/24 17:50 Infused .Q1H ONE Infusion Vancomycin/PEG/NADA/Lysine/Water 1.75 gm in 350 mls @ 200 mls/hr 03/29/24 19:33 03/29/24 22:10 Vancomycin 1.75 Gm/350 Ml IVPB 03/29/24 21:17 Infused ONCE ONE Infusion Protocol Ceftriaxone Sodium 2 gm/ 100 mls @ 200 mls/hr 03/29/24 19:36 03/29/24 20:15 Sodium Chloride IVPB 03/29/24 19:37 Infused ONCE ONE Infusion Sodium Chloride 1,000 mls @ 1,000 mls/hr 03/29/24 19:45 03/29/24 20:23 0.9 % Sodium Chloride 1000 Ml IV 03/29/24 20:44 Infused .Q1H LALI Infusion Sodium Chloride 1,000 mls @ 1,000 mls/hr 03/29/24 21:45 03/29/24 22:52 0.9 % Sodium Chloride 1000 Ml IV 03/29/24 22:44 Infused .Q1H LALI Infusion Ketamine HCl 20 mg 03/29/24 17:38 03/29/24 17:50 Ketamine Hcl 100 Mg/Ml Inj IVP 03/29/24 17:39 20 mg ONCE ONE Administration Ketorolac Tromethamine 15 mg 03/29/24 16:51 03/29/24 17:10 Ketorolac 15 Mg/Ml Inj IVP 03/29/24 16:52 15 mg ONCE ONE Administration Ketorolac Tromethamine 15 mg 03/29/24 22:42 03/29/24 22:52 Ketorolac 15 Mg/Ml Inj IVP 03/29/24 22:43 Not Given ONCE ONE Ondansetron HCl 4 mg 03/29/24 16:51 03/29/24 17:10 Ondansetron 2 Mg/Ml Inj IVP 03/29/24 16:52 4 mg ONCE ONE Administration Medical Decision Making [facility] Narrative Medical decision making narrative: Patient is a 28-year-old male presenting to emergency department for severe low back pain. He appears in severe distress at this time. Initially my differential includes nephrolithiasis, he epidural abscess, muscle strains. Seems unlikely to be a AAA considering does not have many risk factors for it. Also seems unlikely to be dissection as he is relatively stable vital signs. He complained of chest pain also low that has since resolved so I did order an EKG and troponin. Will order a CBC, CMP, troponin, ESR, CRP urinalysis, urine drug screen and a CT scan of the abdomen and pelvis with contrast. Patient's point of care troponin came back at 0.11 and a lab drawn troponin I was ordered. He also has a white count of 14.09. ESR is elevated at 43 and CRP is elevated 16.9. Urinalysis does not show any obvious signs of UTI urine tox just shows marijuana. Lab troponin was 0.11. EKG shows no obvious signs of STEMI. He does seen to have a mildly prolonged QTc. CT scan returned showing a right renal infarct along with a parent infarct within the lung. This makes me concerned he could be having endocarditis considering his history of IV drug use. I spoke to the on-call radiologist who read the imaging and he this time thinks a CTA would be better evaluation of the full chest versus a chest with IV contrast but cannot say definitively. This was ordered. He was still in lot of pain so I did try some ketamine which did not improve his symptoms at all. After that he still clearing and pain in considering everything I am comfortable giving him IV narcotics and did speak to him about this. He was initially hesitant so we waited but the pain continued to be unbearable and then Dilaudid was given. Did repeat exam and I cannot hear any obvious murmurs but he is making quite a bit of noise due to his pain so I cannot hear anything definitively. I do not see any obvious change in weight lesions or Osler's nodes. The might be a very small splinter hemorrhage in his right middle finger nail but cannot say definitively. He is not developing a fever and Tylenol was given. His lactate was it been normal limits. He is becoming tachycardic also in fluids will be given. I spoke to the on-call clay processing labourer from [email or web address] and he is agreeable that is apart and treat him as endocarditis patient until proven otherwise. I will start the patient on vancomycin and Rocephin. Second troponin is elevated more to 0.17 but 6 hour troponin was 0.14. Lab Data Labs: Lab Results 03/29/24 03/29/24 03/29/24 Range/Units 16:44 16:54 17:10 WBC 14.09 H (4.50-11.00) K/uL RBC 4.61 (4.30-5.90) m/uL Hgb 12.3 L (13.5-17.5) gm/dL Hct 37.0 (37.0-53.0) % MCV 80 (80-100) fL MCH 27 (26-34) pg MCHC 33 (32-36) gm/dL RDW Coeff of Verito 13.7 (11.5-15.5) % Plt Count 157 (140-440) K/uL Neut % (Auto) 77.8 H (42.0-72.0) % Lymph % (Auto) 14.8 L (20-44) % [place] % (Auto) 6.7 (0.0-11.0) % Eos % (Auto) 0.2 (0.0-7.0) % Baso % (Auto) 0.1 (0.0-3.0) % Neut # (Auto) 11.00 H (1.7-7.0) K/uL Lymph # (Auto) 2.10 (0.90-2.90) K/uL [place] # (Auto) 0.90 (0.00-0.90) K/UL Eos # (Auto) 0.00 (0.00-0.50) K/uL Baso # (Auto) 0.00 (0.00-0.30) K/uL Abs Immat Gran (auto) 0.10 (0.00-0.30) K/uL Imm/Tot Granulo (auto) 0.4 % ESR 43 H (2-15) mm/hr Sodium 137 (135-149) mmol/L Potassium 4.0 (3.6-5.1) mmol/L Chloride 102 (96-114) mmol/L Carbon Dioxide 26 (20-32) mmol/L Anion Gap 9 (7-15) mEq/L BUN 13 (5-24) mg/dL Creatinine 0.6 (0.5-1.5) mg/dL Estimated Creat Clear 181.66 Estimated GFR 134 ml/min Glucose 143 H (60-115) mg/dL Lactate (0.5-1.9) mmol/L Calcium 8.9 (8.4-10.6) mg/dL Magnesium 1.7 (1.5-2.6) mg/dL Total Bilirubin 2.3 H (0.1-1.5) mg/dL AST 40 H (12-35) U/L ALT 31 (4-50) U/L Alkaline Phosphatase 272 H (40-150) U/L Troponin I 0.11 H* (0.01-0.04) ng/mL C-Reactive Protein 16.9 H (0.5-1.0) mg/dL Total Protein (6.0-8.3) g/dL Albumin (3.3-5.0) g/dL Lipase (23-300) U/L Urine Color Opal A (Yellow) Urine Appearance Cloudy A (Clear) Urine pH 6.5 (5.0-8.5) Ur Specific [place] >= 1.030 (1.000-1.030) Urine Protein 1+ A (Negative) Urine Glucose (UA) Negative (Negative) Urine Ketones Negative (Negative) Urine Blood Trace-intact A (Negative) Urine Nitrite Negative (Negative) Urine Bilirubin 1+ A (Negative) Urine Urobilinogen 0.2 (0.2-1.0) Ur Leukocyte Esterase Negative (Negative) Urine RBC 0-2 (0-2) Urine WBC 2-5 (0-5) Ur Squamous Epith Cells None (None-Few) Amorphous Sediment Moderate A (None) Urine Bacteria Few A (None) Urine Mucus Few A (None) Urine Opiates Screen Negative (Negative) Ur Oxycodone Screen Negative (Negative) Urine Methadone Screen Negative (Negative) Ur Barbiturates Screen Negative (Negative) U Tricyclic Antidepress Negative (Negative) Ur Phencyclidine Scrn Negative (Negative) Ur Amphetamines Screen Negative (Negative) U Methamphetamines Scrn Negative (Negative) U Benzodiazepines Scrn Negative (Negative) Urine Cocaine Screen Negative (Negative) U Marijuana (THC) Screen POSITIVE A (Negative) Ur Drug Screen Comment See Note Lab Acknowledgement POC Troponin I 0.11 H (0.01-0.04) ng/ml 03/29/24 03/29/24 03/29/24 Range/Units 17:10 17:34 18:05 WBC (4.50-11.00) K/uL RBC (4.30-5.90) m/uL Hgb (13.5-17.5) gm/dL Hct (37.0-53.0) % MCV (80-100) fL MCH (26-34) pg MCHC (32-36) gm/dL RDW Coeff of Verito (11.5-15.5) % Plt Count (140-440) K/uL Neut % (Auto) (42.0-72.0) % Lymph % (Auto) (20-44) % [place] % (Auto) (0.0-11.0) % Eos % (Auto) (0.0-7.0) % Baso % (Auto) (0.0-3.0) % Neut # (Auto) (1.7-7.0) K/uL Lymph # (Auto) (0.90-2.90) K/uL [place] # (Auto) (0.00-0.90) K/UL Eos # (Auto) (0.00-0.50) K/uL Baso # (Auto) (0.00-0.30) K/uL Abs Immat Gran (auto) (0.00-0.30) K/uL Imm/Tot Granulo (auto) % ESR (2-15) mm/hr Sodium (135-149) mmol/L Potassium (3.6-5.1) mmol/L Chloride (96-114) mmol/L Carbon Dioxide (20-32) mmol/L Anion Gap (7-15) mEq/L BUN (5-24) mg/dL Creatinine (0.5-1.5) mg/dL Estimated Creat Clear Estimated GFR ml/min Glucose (60-115) mg/dL Lactate 1.8 (0.5-1.9) mmol/L Calcium (8.4-10.6) mg/dL Magnesium (1.5-2.6) mg/dL Total Bilirubin (0.1-1.5) mg/dL AST (12-35) U/L ALT (4-50) U/L Alkaline Phosphatase (40-150) U/L Troponin I (0.01-0.04) ng/mL C-Reactive Protein Cancelled (0.5-1.0) mg/dL Total Protein 7.2 (6.0-8.3) g/dL Albumin 3.6 (3.3-5.0) g/dL Lipase 26 (23-300) U/L Urine Color (Yellow) Urine Appearance (Clear) Urine pH (5.0-8.5) Ur Specific [place] (1.000-1.030) Urine Protein (Negative) Urine Glucose (UA) (Negative) Urine Ketones (Negative) Urine Blood (Negative) Urine Nitrite (Negative) Urine Bilirubin (Negative) Urine Urobilinogen (0.2-1.0) Ur Leukocyte Esterase (Negative) Urine RBC (0-2) Urine WBC (0-5) Ur Squamous Epith Cells (None-Few) Amorphous Sediment (None) Urine Bacteria (None) Urine Mucus (None) Urine Opiates Screen (Negative) Ur Oxycodone Screen (Negative) Urine Methadone Screen (Negative) Ur Barbiturates Screen (Negative) U Tricyclic Antidepress (Negative) Ur Phencyclidine Scrn (Negative) Ur Amphetamines Screen (Negative) U Methamphetamines Scrn (Negative) U Benzodiazepines Scrn (Negative) Urine Cocaine Screen (Negative) U Marijuana (THC) Screen (Negative) Ur Drug Screen Comment Lab Acknowledgement Test Added POC Troponin I (0.01-0.04) ng/ml 03/29/24 03/29/24 03/29/24 Range/Units 19:00 20:02 22:15 WBC (4.50-11.00) K/uL RBC (4.30-5.90) m/uL Hgb (13.5-17.5) gm/dL Hct (37.0-53.0) % MCV (80-100) fL MCH (26-34) pg MCHC (32-36) gm/dL RDW Coeff of Verito (11.5-15.5) % Plt Count (140-440) K/uL Neut % (Auto) (42.0-72.0) % Lymph % (Auto) (20-44) % [place] % (Auto) (0.0-11.0) % Eos % (Auto) (0.0-7.0) % Baso % (Auto) (0.0-3.0) % Neut # (Auto) (1.7-7.0) K/uL Lymph # (Auto) (0.90-2.90) K/uL [place] # (Auto) (0.00-0.90) K/UL Eos # (Auto) (0.00-0.50) K/uL Baso # (Auto) (0.00-0.30) K/uL Abs Immat Gran (auto) (0.00-0.30) K/uL Imm/Tot Granulo (auto) % ESR (2-15) mm/hr Sodium (135-149) mmol/L Potassium (3.6-5.1) mmol/L Chloride (96-114) mmol/L Carbon Dioxide (20-32) mmol/L Anion Gap (7-15) mEq/L BUN (5-24) mg/dL Creatinine (0.5-1.5) mg/dL Estimated Creat Clear Estimated GFR ml/min Glucose (60-115) mg/dL Lactate (0.5-1.9) mmol/L Calcium (8.4-10.6) mg/dL Magnesium (1.5-2.6) mg/dL Total Bilirubin (0.1-1.5) mg/dL AST (12-35) U/L ALT (4-50) U/L Alkaline Phosphatase (40-150) U/L Troponin I (0.01-0.04) ng/mL C-Reactive Protein (0.5-1.0) mg/dL Total Protein (6.0-8.3) g/dL Albumin (3.3-5.0) g/dL Lipase (23-300) U/L Urine Color (Yellow) Urine Appearance (Clear) Urine pH (5.0-8.5) Ur Specific [place] (1.000-1.030) Urine Protein (Negative) Urine Glucose (UA) (Negative) Urine Ketones (Negative) Urine Blood (Negative) Urine Nitrite (Negative) Urine Bilirubin (Negative) Urine Urobilinogen (0.2-1.0) Ur Leukocyte Esterase (Negative) Urine RBC (0-2) Urine WBC (0-5) Ur Squamous Epith Cells (None-Few) Amorphous Sediment (None) Urine Bacteria (None) Urine Mucus (None) Urine Opiates Screen (Negative) Ur Oxycodone Screen (Negative) Urine Methadone Screen (Negative) Ur Barbiturates Screen (Negative) U Tricyclic Antidepress (Negative) Ur Phencyclidine Scrn (Negative) Ur Amphetamines Screen (Negative) U Methamphetamines Scrn (Negative) U Benzodiazepines Scrn (Negative) Urine Cocaine Screen (Negative) U Marijuana (THC) Screen (Negative) Ur Drug Screen Comment Lab Acknowledgement Test Added POC Troponin I 0.17 H 0.14 H (0.01-0.04) ng/ml Imaging Data CT scan abdomen and pelvis: Attestation: I have reviewed the pertinent imaging results. Radiologist's impression: 1. Wedge-shaped cortical hypoenhancement in the upper pole of the right kidney, concerning for renal infarct. Focal pyelonephritis less likely, correlate with urinalysis. 2. Subpleural airspace opacity with internal air lucencies in the right lower lobe, most worrisome differential is pulmonary infarct. If there is clinical concern for pulmonary embolism, recommend further evaluation with CT PE chest. 3. Diffuse circumferential gallbladder wall edema is present, without secondary signs of acute cholecystitis, likely reactive. 4. Long segment colitis involving the ascending and transverse colon. 5. Hepatosplenomegaly. Please note that all CT scans at this facility use dose modulation, iterative reconstruction, and/or weight-based dosing when appropriate to reduce radiation dose to as low as reasonably achievable. Dictated by Shemar Rahman MD @ 03/29/2024 6:08:14 PM CTA chest: Attestation: I have reviewed the pertinent imaging results. Radiologist's impression: 1. In addition to the 2.0 cm subpleural airspace opacity with internal air lucencies in the right lower lobe, there are small irregular subcentimeter pulmonary nodules in the right upper lobe and left lower lobe. Given clinical history, these are worrisome for septic emboli. 2. Suboptimal contrast opacification of the thoracic aorta and pulmonary arteries, no large central pulmonary embolus is identified. No thromboemboli identified within the thoracic aorta. 3. Dilation of the main pulmonary artery measuring up to 4.3 cm, suggestive of underlying pulmonary arterial hypertension. Please note that all CT scans at this facility use dose modulation, iterative reconstruction, and/or weight-based dosing when appropriate to reduce radiation dose to as low as reasonably achievable. Dictated by Shemar Rahman MD @ 03/29/2024 8:29:47 PM ECG Data Attestation: I personally reviewed and interpreted this ECG as follows: Prior ECG tracings: available for review Interpretation: Initial EKG done at 17:04 shows a normal sinus rhythm with normal TX interval, rate of 99 beats per minute, prolonged QTC, no clear T T-wave or ST abnormalit ies. 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 Qualifiers: Endocarditis type: unspecified Chronicity: unspecified Qualified Code(s): I38 - Endocarditis, valve unspecified Patient Disposition: Kalia Morales Condition: Guarded Prescriptions: No Action propranolol 20 mg tablet 20 mg PO BID Qty: 30 0RF methimazole 10 mg tablet 10 mg PO DAILY Qty: 14 0RF cyclobenzaprine 10 mg tablet 10 mg PO TID PRN (Reason: muscle spasm) Qty: 15 0RF ketorolac 10 mg tablet 10 mg PO Q6H Qty: 20 0RF Rx Instructions: maximum total duration of 5 days from all oral, intranasal, or parenteral formulations methimazole 10 mg tablet 20 mg propranolol 20 mg tablet ondansetron 4 mg tablet,disintegrating 4 mg PO Q4-6H PRN (Reason: nausea and vomiting) Qty: 15 0RF Rx Instructions: dissolve in mouth Follow Up/Referrals: Provider,Not a Local [Primary Care Provider] - Stand Alone Forms: [facility] Info Instructions
[2024-03-29 17:59] LABS: C Reactive Protein* 16.9 mg/dL (0.5-1.0)
[2024-03-29 18:08] LABS: Lactate* 1.8 mmol/L (0.5-1.9)
--- OUTSIDE RECORDS SUMMARY | 2024-03-29 18:09 | XMS_ITS | Clinical Summary ---
Author Organization [employer] [facility] Address [place], [place] [address] Care Team Providers Care Advanced Manager Name Role Phone [facility] - Primary C are Provider [...] this topic Medical Devices Implanted Type Area Arcade Technician Device Identifier Shelf Expiration Date Model / Serial / Lot Ancr Sut Sm Bone [id number] Fiberwire - [id number] Implanted:Qty: 1 on 03/13/2009 at [facility] Left: Wrist [employer] 01/13/2013 [id number] / / [id number] Procedures Procedure Name Priority Date/Time Associated Diagnosis Comments LC HIV-1/O/2, 4TH GENERATION APRIL 12/29/2022 11:00 AM CDT from Last 3 Months or Most Recently Relevant to Health Maintenance Results * LC HIV-1/O/2, 4TH GENERATION (12/29/2022 11:00 AM CDT) HIV Scr 4th Gen Non Reactive Non Reactive 12/31/2022 1:09 PM CDT [facility] ([facility]) Comment: HIV Negative HIV-1/HIV-2 antibodies and HIV-1 p24 antigen were NOT detected. There is no laboratory evidence of HIV infection. Blood BLOOD SPECIMEN / Unknown Venipuncture / Unknown 12/29/2022 11:00 AM CDT 12/29/2022 11:06 AM CDT Narrative [facility] - 12/31/2022 1:09 PM CDT Performed at: ??[address] - [address] ??[id number] Engineer Third Assistant: Salas Nunes MD, Phone: ??[phone] Winter Cheney MD LABORATORY [facility] ([facility]) [address] [place] [address] from Last 3 Months or Most Recently [...] 11:36 AM 03/13/2009 6:42 AM Care Teams Advanced Manager Relationship Specialty Start Date [facility] [address] [place] [phone] PCP - General Family Practice 04/27/23
--- NOTE | 2024-03-29 18:21 | CRLHL7_ITS ---
For Patients: As a result of the Century Cures Act, medical imaging exams and procedure reports are released immediately into your electronic medical record. You may view this report before your referring provider. If you have questions, please contact your health care provider. INDICATION: Possible pulmonary infarct seen on earlier CT. History of IV drug use, concern for septic emboli. TECHNIQUE: CTA chest with 95 mL Isovue 370 IV contrast. COMPARISON: CT abdomen/pelvis earlier same day, dated 03/29/2024. FINDINGS: Lungs and pleura: Again seen is a 2.0 cm subpleural airspace opacity in the right lower lobe, with internal air lucencies. Additional small irregular pulmonary nodules in the right upper lobe measuring 0.7 cm (series 8, image 28) and left lower lobe measuring 0.6 cm (series 8, image 127). Heart and vasculature: No cardiomegaly, no pericardial effusion. Both the thoracic aorta and pulmonary arteries are not well contrast opacified. No large central pulmonary embolus. There is dilation of the main pulmonary artery measuring up to 4.3 cm. No filling defects identified within the ascending or descending thoracic aorta. Thyroid and lower neck: Bulky enlarged thyroid gland. Mediastinum/amor: Mildly enlarged mediastinal hilar lymph nodes, which may be reactive. Chest wall: No axillary lymphadenopathy. Upper abdomen: Partially visualized right renal infarct. Bones: Multilevel degenerative changes of the spine. No suspicious/aggressive focal osseous lesion. IMPRESSION: 1. In addition to the 2.0 cm subpleural airspace opacity with internal air lucencies in the right lower lobe, there are small irregular subcentimeter pulmonary nodules in the right upper lobe and left lower lobe. Given clinical history, these are worrisome for septic emboli. 2. Suboptimal contrast opacification of the thoracic aorta and pulmonary arteries, no large central pulmonary embolus is identified. No thromboemboli identified within the thoracic aorta. 3. Dilation of the main pulmonary artery measuring up to 4.3 cm, suggestive of underlying pulmonary arterial hypertension. Please note that all CT scans at this facility use dose modulation, iterative reconstruction, and/or weight-based dosing when appropriate to reduce radiation dose to as low as reasonably achievable. Dictated by Shemar Rahman MD @ 03/29/2024 8:29:47 PM (Electronically Signed)
[2024-03-29 18:24] LABS: Erythrocyte SedimentationRate* 43 mm/hr (2-15)
[2024-03-29] MEDS: HYDROmorphone 0.5 mg/0.5 ml inj 1 MG IVP (18:30)
[2024-03-29 18:43] LABS: Troponin, Point-of-Care* 0.11 ng/ml (0.01-0.04)
[2024-03-29 18:50] LABS: Troponin I* 0.11 ng/mL (0.01-0.04)
[2024-03-29 19:12] LABS: Magnesium* 1.7 mg/dL (1.5-2.6)
[2024-03-29] MEDS: ACETAMINOPHEN 325 MG TABLET 650 MG PO ×2 (19:23→22:40)
[2024-03-29] MEDS: 0.9 % SODIUM CHLORIDE 1000 ml 1,000 ML IV ×2 (19:30→21:30)
[2024-03-29] MEDS: HYDROmorphone 0.5 mg/0.5 ml inj IVP ×4 (19:35→23:38)
[2024-03-29] MEDS: cefTRIAXone 2 GM in 0.9 % SODIUM CHLORIDE Mini-bag 100 ML IVPB (19:45)
[2024-03-29] MEDS: VANCOMYCIN 1.75 GM/350 ML 1.75 GM/350 ML PIGGYBACK IVPB (20:18)
[2024-03-29 20:25] LABS: Troponin, Point-of-Care* 0.17 ng/ml (0.01-0.04)
[2024-03-29 22:49] LABS: Troponin, Point-of-Care* 0.14 ng/ml (0.01-0.04)
[2024-03-30 00:11] VITALS: PULSE 107; O2SAT 92
[2024-03-30 00:13] VITALS: TEMP 38.1
[2024-03-30] MEDS: HYDROmorphone 0.5 mg/0.5 ml inj IVP (00:51)
--- NOTE | 2024-03-30 14:53 | ED.NURSE ---
Blood culture results called to [facility] had positive aerobic and anaerobic bottles gram positive cocci in chains. Called to station [id number].
== END 2024-03-30 00:57 | disposition short-term general hospital (02) ==
PROVIDERS: Emergency Provider Student in an Organized Health Care Education/Training Program
DX: I38 Endocarditis, valve unspecified (principal); N28.0 Ischemia and infarction of kidney
CPT/HCPCS: 36415; 71275; 74177; 80053; 80306; 81001; 83605; 83690; 83735; 84484; 85025; 85651; 86140; 87040; 87086; 87186; 93005; 96365; 96366; 96375; 99284; 99285; A9270; J0696; J1170; J1885; J2405; J3372; J3490; J7030; J7120; Q9967

== ENCOUNTER 2024-03-30 00:55 | Outpatient (CLI) | payer SELFPAY ==
--- OUTSIDE RECORDS SUMMARY | 2024-04-18 01:00 | XMS_ITS | Clinical Summary ---
Author Organization [facility] Address [place], [place] [address] Care Team Providers Care Firearms Inspector Name Role Phone [facility], [place] Unavailable [phone] Lisa Rousseau MD Primary Care Provider [phone] Allergies Active Allergy Reactions Criticality Noted Date Comments Buprenorphine-Naloxone Nausea Only 06/11/2020 Medications Medication Sig Dispensed Refills Start Date End Date Status amLODIPine (NORVASC) 10 mg tabletIndications :Primary hypertension Take 1 Tablet (10 mg) by mouth once daily. 30 Tablet 04/04/20 24 Active acetaminophen (TYLENOL EXTRA STRGTH) 500 mg tabletIndications :Acute bacterial endocarditis,Back pain, unspecified back location, unspecified back pain laterality, unspecified chronicity,Parasp inal abscess (HC) Take 2 Tablets (1,000 mg) by mouth three times daily. Max acetaminophen dose: 4000mg in 24 hrs. 180 Tablet 04/04/20 24 Active methocarbamoL (ROBAXIN) 500 mg tabletIndications :Back pain, unspecified back location, unspecified back pain laterality, unspecified chronicity,Parasp inal abscess (HC) Take 1 Tablet (500 mg) by mouth every 6 hours if needed for Muscle Spasm. 60 Tablet 04/04/20 24 Active nicotine 21 mg/24 hr (NICODERM; HABITROL) 21 mg/24 hr patchIndications: Tobacco abuse Apply 1 Patch on dry, clean, hairless skin and change once daily. 30 Patch 04/05/20 24 Active alteplase (ACTIVASE; CATHFLO) injectionIndicati ons:Bacteremia due to Streptococcus pneumoniae 2 mg by Intra-Catheter route each time if needed for Catheter Clearance. Instill 2 mg into catheter and allow to dwell for 30 minutes. If unable to aspirate blood, allow to dwell for a total of 120 minutes. 4 mL 1 04/04/20 Active cefTRIAXone (ROCEPHIN) 1 gram injectionIndicati ons:Bacteremia due to Streptococcus pneumoniae Inject 2,000 mg intravenous every 24 hours for 26 days. 52 g 04/20/20 24 Active cefTRIAXone (ROCEPHIN) 1 gram injectionIndicati ons:Bacteremia due to Streptococcus pneumoniae Inject 2,000 mg intravenous every 12 hours for 15 days. Switch to daily dosing on 04/20. 04/04/20 24 Active methIMAzole (TAPAZOLE) 10 mg tabletIndications :Graves' disease Take 3 Tablets (30 mg) by mouth two times daily. 360 Tablet 04/05/20 Active propranoloL (INDERAL) 20 mg tabletIndications :Graves' disease Take 1.5 Tablets (30 mg) by mouth three times daily. 270 Tablet 04/05/20 Active sodium chloride (Normal Saline Flush) syrg syringe Inject 10 mL intravenous every 12 hours. Active heparin (Hep Flush-10, PF,) 10 unit/mL soln 10 units every 12 hours. Active cloNIDine HCL (CATAPRES) 0.2 mg tablet Take 0.2 mg by mouth two times daily. Discontinued(*P atient states no longer taking) methIMAzole (TAPAZOLE) 10 mg tablet Take 10 mg by mouth once daily. Discontinued(*M edication adjustment) propranoloL (INDERAL) 20 mg tablet Take 20 mg by mouth two times daily. Discontinued(*M edication adjustment) losartan (COZAAR) 50 mg tablet Take 50 mg by mouth once daily. Discontinued(*I P Discontinued) escitalopram oxalate (Lexapro) 5 mg tablet Take 5 mg by mouth once daily. Discontinued(*P atient states no longer taking) propranoloL (INDERAL) 20 mg tablet Take 30 mg by mouth 4 times daily if needed (prn graves symptoms). Discontinued mirtazapine (Remeron) 15 mg tablet Take 15 mg by mouth at bedtime. Discontinued(*P atient states no longer taking) methIMAzole (TAPAZOLE) 5 mg tablet Take 15 mg by mouth three times daily. 024 Discontinued amLODIPine (NORVASC) 10 mg tablet 10 mg once daily. 024 Discontinued cefTRIAXone (ROCEPHIN) 1 gram injectionIndicati ons:Bacteremia due to Streptococcus pneumoniae Inject 2,000 mg intravenous every 12 hours for 15 days. Switch to daily dosing on 04/20. 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 03/31/2024 Normocytic anemia 03/31/2024 Thrombocytopenia 03/31/2024 Embolic infarction 03/31/2024 Sepsis 03/30/2024 Pulmonary infarct 03/30/2024 Back pain 03/30/2024 Colitis 03/30/2024 Renal infarct 03/30/2024 Tachycardia 03/30/2024 Nonrheumatic mitral valve regurgitation 03/30/20 Acute bacterial endocarditis 03/30/2024 Paraspinal abscess 03/30/2024 LUIS (generalized anxiety disorder) 12/13/2023 Tobacco abuse 12/31/2022 Graves' disease 09/06/2021 Overview: Added automatically from request for surgery [id number] Added automatically from request for surgery [id number] Thyroid eye disease 09/06/2021 History of opioid abuse 09/06/2021 Primary hypertension 09/06/2021 Resolved Problems Problem Noted Date Diagnosed Date Resolved Date Fever 03/30/2024 03/31/2024 SIRS (systemic inflammatory response syndrome) 12/31/2022 03/30/2024 Opioid withdrawal 12/28/2022 03/31/2024 Thyrotoxicosis 12/28/2022 03/31/2024 Encounters Date Type Department Care Team Description 04/17/2024 2:00 PM CDT Office Visit [facility] [address] [facility] [address] [place] [address] Micheal Mae MD Consult (Thyroid storm follow up.) 04/17/2024 Home Care Visit [address] [address] Diane Londono RN SN - MISSED VISIT 04/17/2024 Travel 04/17/[address] [address] Diane Londono RN Lab 04/17/[address] [address] Diane Londono RN Lab 04/13/2024 Home Care Visit [address] [address] Diane Londono RN SN - MISSED VISIT 04/11/2024 3:00 PM CDT Home Care Visit [address] [address] Joe Alonso RN SN - HOME VISIT 04/10/2024 11:44 PM CDT - 04/11/2024 1:56 AM CDT Emergency [facility] [address] [place] [address] Andrea Kaplan MD Chest pressure (Primary Dx); History of endocarditis; Palpitations Discharge Disposition: Home Self Care 04/10/2024 Travel 04/09/2024 12:30 PM CDT Home Care Visit [address] [address] Joe Alonso RN SN - LONG VISIT (>90 MINUTES) 04/09/2024 10:30 AM CDT Office Visit [address] [place] [address] Lisa Rousseau MD [facility] F/U (D/C ANW acute bacterial endocarditis. Still has right hip pain and headache.) 04/09/2024 Orders Only [facility] Scanner 1 scan: (1-Ord) [facility], BASIC METABOLIC PANEL, 04/09/2024 04/09/2024 Orders Only [facility] Scanner 1 scan: (1-Ord) [facility], MULTIPLE LABS, 04/09/2024 04/09/2024 Orders Only [facility] [address] [place] [address] Lula Fortune PA Lab 04/09/2024 Orders Only [address] [address] Lula Fortune PA Home Care (Weekly labs) 04/09/2024 Travel 04/07/2024 1:30 PM CDT Home Care Visit [address] [address] Katie Martinez RN SN IV - START OF CARE 04/07/2024 Plan of Care Documentation [address] [address] 04/05/2024 Telephone [facility] [address] [facility] [address] [place] [address] Micheal Mae MD Appointment 04/02/2024 2:24 PM CDT Anesthesia Event [facility] [address] [place] [address] Cholo Velasco MD Singh, Kathryn Anne, SYDNIE 04/02/2024 Lab Requisition [facility] [phone] Unknown, Doctor 03/30/2024 1:49 AM CDT - 04/05/2024 2:00 PM CDT Hospital Encounter [facility] [address] [place] [address] [facility], [facility] Of [facility] Joseph MD Sang, MD Nathan Dial, Bertha Toth MD Acute bacterial endocarditis (Primary Dx); Bacteremia due to Streptococcus pneumoniae; Primary hypertension; Back pain, unspecified back location, unspecified back pain laterality, unspecified chronicity; Paraspinal abscess (HC); Tobacco abuse; Graves' disease; Thyrotoxicosis with toxic multinodular goiter and thyroid storm Discharge Disposition: Home Health 03/30/2024 Travel from Last 3 Months Immunizations Name Administration Dates Next Due DTaP 09/16/1998,1994 DTaP-HIB (TriHIBIT) 03/15/1995,1994 Hepatitis B (Peds) 1994,1994, 994 Influenza, IIV3 (Age >=3 years) 07/12/2007 Influenza,LAIV3 Live Intrana christopher (Flumist) 06/28/2011 MMR 05/04/2007,09/16/1998 Meningococcal Vaccine (Menactra) 03/12/2009 Oral Polio Vaccine 09/16/1998, 5,1994,07/05 Tdap 03/27/2013,03/22/2006 Varicella Vaccine 05/04/2007,09/16/1998 Social History Tobacco Use Types Packs/Day Years Used Date Smoking Tobacco: Every Day Cigarettes Smokeless Tobacco: Never Tobacco Cessation:Ready to Q uit: Not Asked; Counseling Given: Not Answered Comments:A few cigs since hospitalization 04/05/24 Alcohol Use Standard Drinks/Week Comments Not Currently 0 (1 standard drink = 0.6 oz pur e alcohol) Social Connections Answer Date Recorded Frequency of Communication with Friends and Fami ly 0 03/30/2024 Financial Resource Strain Answer Date R ecorded Difficulty of Paying Living Expenses 3 03/30/2024 Difficulty of Paying Living Expenses Not on file 03/30/2024 Food Insecurity Answer Date Recorded Worried About Running Out of Food in the Last Ye ar 1 03/30/2024 Transportation Needs Answer Date Record ed Lack of Transportation (Medical) 1 03/30/2024 Housing Stability Answer Date Recorded Unable to Pay for Housing in the Last Year 1 03/30/2024 Sex and Gender Information Value Date Recorded Sex Assigned at Not on file Gender Identity Not on file Sexual Orientation Not on file Obstetrics History Last Filed Vital Signs Vital Sign Reading Time Taken Comments Blood Pressure 110/76 04/17/2024 2:12 PM CDT Pulse 86 04/17/2024 2:12 PM CDT Temperature 36.9 ??C (98.5 ??F) 04/11/2024 3:25 PM CD T Respiratory Rate 16 04/11/2024 3:25 PM CDT Oxygen Saturation 99% 04/11/2024 3:25 PM CDT Inhaled Oxygen Concentration - - Weight 74.8 kg (165 lb) 04/17/2024 2:12 PM CDT Height 171.5 cm (5' 7.5) 04/17/2024 2:12 PM CDT Body Mass Index 25.46 04/17/2024 2:12 PM CDT Plan of Treatment Upcoming Encounters Date Type Department Care Team (Late st Contact Info) Description 04/18/2024 10:45 AM CDT Home Care Visit [address] [address] Sofia Lyons RN [address] [place] [address] 04/19/2024 9:00 AM CDT Office Visit [facility] [address] [address] Lula Fortune PA [address] [address] 04/20/2024 4:00 AM CDT Home Care Visit [address] [address] Diane Londono RN [address] [place] [address] 04/23/2024 4:00 AM CDT Home Care Visit [address] [address] Diane Londono RN [address] [place] [address] 04/26/2024 4:00 AM CDT Home Care Visit [address] [address] Diane Londono RN [address] [place] [address] 04/30/2024 4:00 AM CDT Home Care Visit [address] [address] Diane Londono RN [address] [place] [address] 2024 4:00 AM CDT Home Care Visit [address] [address] Diane Londono RN [address] [place] [address] 05/07/2024 4:00 AM CDT Home Care Visit [address] [address] Diane Londono RN [address] [place] [address] 05/10/2024 4:00 AM CDT Home Care Visit [address] [address] Diane Londono RN [address] [place] [address] 05/14/2024 4:00 AM CDT Home Care Visit [address] [address] Diane Londono RN [address] [place] [address] 05/17/2024 4:00 AM CDT Home Care Visit [address] [address] Diane Londono RN [address] [place] [address] 05/23/2024 4:00 AM CDT Home Care Visit [address] [address] Diane Londono RN [address] [place] [address] 05/30/2024 4:00 AM CDT Home Care Visit [facility] [address] [place] [address] Diane Londono RN [address] [place] [address] 09/12/2024 2:00 PM DIRECTOR REACTOR PROJECTS Office Visit [facility] [address] [facility] [address] [place] [address] Micheal Mae MD [address] [facility] [address] [place], [place] [id number] Health Maintenance Due Date Last Done Comments Pneumococcal series for age 6-64 (1 of 2 - PCV) 2000 Depression screening for age 12+ 2006 Tetanus booster 03/27/2023 03/27/2013, 03/22/2006 COVID-19 vaccine series ( season) 2024 Influenza for age 9-49 04/15/2024 06/28/2011, 2006 BMI (ht and wt on same day) for age 18+ 04/17/2025 04/17/2024 Tdap Completed 03/27/2013, 03/22/2006 HIV for age 15-65 Completed 03/30/2024, , 10/31/2018 Hepatitis C screening for age 18-79 Completed 03/31 Medical Devices Implanted Type Area Motor Scooter Mechanic Device Identifier Shelf Expiration Date Model / Serial / Lot Ancr Sut Sm Bone [id number] Fiberwire - [id number] Implanted:Qty: 1 on 03/13/2009 at [facility] Left: Wrist [employer] 01/13/2013 [id number] / / [id number] Procedures Procedure Name Priority Date/Time Associated Diagnosis Comments WHITE BLOOD COUNT Routine 04/17/2024 2:5 2 PM CDT Graves' disease HEPATIC FUNCTION PANEL Routine 2:52 PM CDT Graves' disease T3,TOTAL Routine 04/17/2024 2:52 PM CDT Graves' disease T4,FREE Routine 04/17/2024 2:52 PM CDT Graves' disease TSH Routine 04/17/2024 2:52 PM CDT Graves' disease XR CHEST 2 VIEWS PA AND LATERAL STAT 04/11/2024 1:14 AM CDT CBC WITH AUTO DIFFERENTIAL STAT 04/11/2024 12:49 AM CDT SEDIMENTATION RATE STAT 04/11/2024 12 :49 AM CDT CBC WITH AUTO DIFFERENTIAL STAT 04/11/2024 12:49 AM CDT C-REACTIVE PROTEIN STAT 04/11/2024 12 :28 AM CDT TROPONIN T (HS) ACUTE W/2HR REFLEX STAT 04/11/2024 12:28 AM CDT MAGNESIUM STAT 04/11/2024 12:28 AM CDT BASIC METABOLIC PANEL STAT 04/11/2024 12:28 AM CDT EKG 12 LEAD STAT 04/10/2024 11:41 PM CDT ALT (SGPT) Routine 04/09/2024 2:02 PM CDT Acute bacterial endocarditis AST (SGOT) Routine 04/09/2024 2:02 PM CDT Acute bacterial endocarditis CBC WITH AUTO DIFFERENTIAL Routine 04/09/2024 11:30 AM CDT Acute bacterial endocarditis BASIC METABOLIC PANEL Routine 04/09/2024 11:30 AM CDT Hospital discharge follow-up Acute bacterial endocarditis S/P PICC central line placement C-REACTIVE PROTEIN Routine 04/09/2024 11 :30 AM CDT Acute bacterial endocarditis SEDIMENTATION RATE Routine 04/09/2024 11 :30 AM CDT Acute bacterial endocarditis CBC WITH AUTO DIFFERENTIAL Routine 04/09/2024 11:30 AM CDT Acute bacterial endocarditis SCAN-LABORATORY REPORT 12:00 AM CDT SCAN-LABORATORY REPORT 12:00 AM CDT SCAN CORRESP-EKG RESULTS 04/06/2024 3:26 PM CDT SCAN CORRESP-EKG RESULTS 04/06/2024 3:23 PM CDT SCAN-CARDIAC STRIP 04/05/2024 8: 51 AM CDT T4,FREE APRIL 04/05/2024 5:29 AM CDT POTASSIUM Early AM 04/05/2024 5:29 AM CDT SCAN-CARDIAC STRIP 04/04/2024 7: 39 PM CDT SCAN-CARDIAC STRIP 04/04/2024 7: 39 PM CDT INSERT MIDLINE Routine 04/04/2024 4:33 PM CDT SCAN-CARDIAC STRIP 04/04/2024 3: 19 PM CDT SEDIMENTATION RATE Today 04/04/2024 1: 37 PM CDT C-REACTIVE PROTEIN Timed 04/04/2024 1: 37 PM CDT SCAN-CARDIAC STRIP 04/04/2024 8: 58 AM CDT T4,FREE Early AM 04/04/2024 6:38 AM CDT T3,TOTAL Early AM 04/04/2024 6:38 AM CDT PLATELET COUNT Early AM 04/04/2024 6:38 AM CDT WHITE BLOOD COUNT Early AM 04/04/2024 6:3 8 AM CDT HEMOGLOBIN Early AM 04/04/2024 6:38 AM CDT CREATININE Early AM 04/04/2024 6:38 AM CDT ELECTROLYTE PANEL Early AM 04/04/2024 6:3 8 AM CDT SCAN-CARDIAC STRIP 04/03/2024 11 :26 PM CDT POTASSIUM Today 04/03/2024 6:27 PM CDT SCAN-CARDIAC STRIP 04/03/2024 5: 36 PM CDT POTASSIUM STAT 04/03/2024 9:55 AM CDT EKG 12 LEAD Routine 04/03/2024 8:59 AM CDT T3,TOTAL Early AM 04/03/2024 7:37 AM CDT T4,FREE Early AM 04/03/2024 7:37 AM CDT PROTIME-INR Early AM 04/03/2024 7:37 AM CDT PLATELET COUNT Early AM 04/03/2024 7:37 AM CDT WHITE BLOOD COUNT Early AM 04/03/2024 7:3 7 AM CDT HEMOGLOBIN Early AM 04/03/2024 7:37 AM CDT BASIC METABOLIC PANEL Early AM 04/03/2024 7:37 AM CDT EKG 12 LEAD Early AM 04/03/2024 5:48 AM CDT SCAN-CARDIAC STRIP 04/03/2024 12 :[address] ANGIO HEAD AND NECK CAROTID Routine 04/02/2024 6:50 PM CDT ECHO DOUG WO CONTRAST W COLOR W LTD DOPPLER Routine 04/02/2024 3:02 PM CDT SCAN CORRESP-LABORATORY RESULTS 04/02/2024 2:13 PM CDT T4,FREE Early AM 04/02/2024 5:57 AM CDT T3,TOTAL Early AM 04/02/2024 5:57 AM CDT BLOOD CULTURE Today 04/02/2024 5:57 AM CDT SCAN-CARDIAC STRIP 04/01/2024 11 :29 PM CDT SCAN-CARDIAC STRIP 04/01/2024 8: 03 AM CDT CBC WITH AUTO DIFFERENTIAL Early AM 04/01/2024 6:55 AM CDT HEPATIC FUNCTION PANEL Early AM 6:55 AM CDT PROTIME-INR Early AM 04/01/2024 6:55 AM CDT CBC WITH AUTO DIFFERENTIAL Early AM 04/01/2024 6:55 AM CDT BASIC METABOLIC PANEL Early AM 04/01/2024 6:55 AM CDT BLOOD CULTURE Today 04/01/2024 6:55 AM CDT SCAN-CARDIAC STRIP 04/01/2024 2: 25 AM CDT SCAN-CARDIAC STRIP 03/31/2024 4: 10 PM CDT US ASPIRATION FLUID OR CYST Routine 03/31/2024 12:42 PM CDT CRYSTAL ID BODY FLUID NO URINE Today 03/31/2024 12:40 PM CDT BODY FLUID CELL COUNT/DIF Today 03/31/2024 12:40 PM CDT XR ORTHOPANTOGRAM Routine 03/31/2024 12: 31 PM CDT MR HEAD BRAIN WWO Routine 03/31/2024 11: 31 AM CDT MR PELVIS WWO Routine 03/31/2024 11:30 AM CDT SCAN-CARDIAC STRIP 03/31/2024 8: 39 AM CDT PLATELET ESTIMATE Timed 03/31/2024 7:4 0 AM CDT CBC WITH AUTO DIFFERENTIAL Early AM 03/31/2024 7:40 AM CDT T3,TOTAL Early AM 03/31/2024 7:40 AM CDT T4,FREE Early AM 03/31/2024 7:40 AM CDT BLOOD CULTURE Today 03/31/2024 7:40 AM CDT ANTI HCV Early AM 03/31/2024 7:40 AM CDT TREPONEMA PALLIDUM Early AM 03/31/2024 7: 40 AM CDT PROTIME-INR Early AM 03/31/2024 7:40 AM CDT CBC WITH AUTO DIFFERENTIAL Early AM 03/31/2024 7:40 AM CDT HEPATIC FUNCTION PANEL Early AM 7:40 AM CDT BASIC METABOLIC PANEL Early AM 03/31/2024 7:40 AM CDT SCAN-CARDIAC STRIP 03/31/2024 12 :41 AM CDT T3,TOTAL APRIL 03/30/2024 7:59 PM CDT CORTISOL TOTAL STAT 03/30/2024 7:59 PM CDT GC CHLAMYDIA TRACH PROBE Today 03/30/2024 6:12 PM CDT XR HIP 2 OR 3 VIEWS W PELVIS RIGHT Routine 03/30/2024 2:52 PM CDT DRUG SCREEN RAPID URINE INHOUSE Today 03/30/2024 2:24 PM CDT PROTIME-INR STAT 03/30/2024 1:37 PM CDT ECHO TTE COMPLETE WO CONTRAST STAT 03/30/2024 12:47 PM CDT MRSA/SA PCR Today 03/30/2024 10:11 AM CDT SCAN-CARDIAC STRIP 03/30/2024 8: 52 AM CDT US ABDOMEN LIMITED Routine 03/30/2024 8: 25 AM CDT MR SPINE THORACIC WWO Routine 03/30/2024 6:01 AM CDT MR SPINE LUMBAR WWO Routine 03/30/2024 6 :01 AM CDT BLOOD CULTURE Today 03/30/2024 4:38 AM CDT BLOOD CULTURE Today 03/30/2024 4:33 AM CDT ANTI HIV 1/2 APRIL 03/30/2024 4:32 AM CDT T4,FREE Early AM 03/30/2024 4:32 AM CDT TSH Today 03/30/2024 4:32 AM CDT HEPATIC FUNCTION PANEL Today 4:32 AM CDT LACTATE VENOUS Today 03/30/2024 4:32 AM CDT CBC W PLT NO DIFF Today 03/30/2024 4:3 2 AM CDT BASIC METABOLIC PANEL Timed 03/30/2024 4:32 AM CDT REFERRAL SUSCEPTIBILITY Routine 03/29/2024 7:28 PM CDT from Last 3 Months Results * (ABNORMAL) TSH (04/17/2024 2:52 PM CDT) Only the most recent of2 resultswithin the time period is included. TSH <0.01(L) 0.27 - 4.20 uIU/mL 04/17/2024 8:00 PM CDT [facility] Blood BLOOD SPECIMEN / Unknown Venipuncture / Unknown 04/17/2024 2:52 PM CDT 04/17/2024 2:52 PM CDT [facility] - 04/17/2024 8:00 PM CDT In Adults, TSH values between 5.00 and 10.00 uIU/ml do not necessarily indicate the presence of Hypothyroidism. Correlation with clinical findings such as presence of goiter and/or Thyroperoxidase (TPO) Antibody may be helpful. For more information please refer to ANNA 2004; 291: 228-238. Micheal Mae MD CHEMISTRY [facility] [address] [place] [address], * WHITE BLOOD COUNT (04/17/2024 2:52 PM CDT) Only the most recent of3 resultswithin the time period is included. WHITE BLOOD COUNT 6.1 4.5 - 11.0 thou/cu mm 04/17/2024 6:48 PM CDT [facility] NRBC 0.0 % 04/17/2024 6:48 PM CDT [facility] ABS NRBC 0.0 thou /cu mm 04/17/2024 6:48 PM CDT [facility] Blood BLOOD SPECIMEN / Unknown Venipuncture / Unknown 04/17/2024 2:52 PM CDT 04/17/2024 2:52 PM CDT Micheal Mae MD HEMATOLOGY Performing Organization Address City/[facility]/ZIP Co de Phone Number [facility] [address] [place] [id number], [place] * T3,TOTAL (04/17/2024 2:52 PM CDT) Only the most recent of6 resultswithin the time period is included. T3,TOTAL 100 85 - 202 ng/dL 04/17/2024 7:57 PM CDT [facility] Blood BLOOD SPECIMEN / Unknown Venipuncture / Unknown 04/17/2024 2:52 PM CDT 04/17/2024 2:52 PM CDT Micheal Mae MD CHEMISTRY Performing Organization Address [facility] Co de Phone Number [facility] [address] [place] [address], [place] * (ABNORMAL) T4,FREE (04/17/2024 2:52 PM CDT) Only the most recent of7 resultswithin the time period is included. Pathologist [facility] T4,FREE 0.38(L) 0.93 - 1.70 ng/dL 04/17/2024 8:01 PM CDT [facility] Blood BLOOD SPECIMEN / Unknown Venipuncture / Unknown 04/17/2024 2:52 PM CDT 04/17/2024 2:52 PM CDT Micheal Mae MD CHEMISTRY Performing Organization Address [facility] Co de Phone Number [facility] [address] [place] [address], [place] * (ABNORMAL) HEPATIC FUNCTION PANEL (04/17/2024 2:52 PM CDT) Only the most recent of4 resultswithin the time period is included. Pathologist [facility] ALBUMIN 4.1 4.0 - 4.9 g/dL 04/17/2024 7:57 PM CDT [facility] PROTEIN,TOTAL 8.1(H) 6.0 - 8.0 g/dL 04/17/2024 7:57 PM CDT [facility] BILIRUBIN,TOTAL 0.4 0.0 - 1.2 mg/dL 04/17/2024 7:57 PM CDT [facility] BILIRUBIN,DIRECT 0.2 0.0 - 0.2 mg/dL 04/17/2024 7:57 PM CDT [facility] BILIRUBIN,INDIRE CT 0.2 0.2 - 0.8 mg/dL 04/17/2024 7:57 PM CDT [facility] ALK PHOSPHATASE 174(H) 40 - 129 IU/L 04/17/2024 7:57 PM CDT [facility] ALT (SGPT) 18 10 - 50 IU/L 04/17/2024 7:57 PM CDT [facility] AST (SGOT) 22 10 - 50 IU/L 04/17/2024 7:57 PM CDT [facility] Blood BLOOD SPECIMEN / Unknown Venipuncture / Unknown 04/17/2024 2:52 PM CDT 04/17/2024 2:52 PM CDT Micheal Mae MD CHEMISTRY [facility] [address] [place] [address], [place] * XR CHEST 2 VIEWS PA AND LATERAL (04/11/2024 1:14 AM CDT) Anatomical Region Laterality Modality CHEST, THORAX, Lung, HEART Digit al Radiography 04/11/2024 1:15 AM CDT Impressions 04/11/2024 1:15 AM CDT 1. No acute cardiopulmonary disease is seen. Dictated by: Sony Smart MD @ 04/11/2024 01:15:53 (Electronically Signed) Narrative 04/11/2024 1:15 AM CDT For Patients: ??As a result of the Cures Act, medical imaging exams and procedure reports are released immediately into your electronic medical record. ??You may view this report before your referring provider. ??If you have questions, please contact your health care provider. INDICATION: Shortness of breath, sdc TECHNIQUE: Chest radiograph 2 views COMPARISON: 12/28/2022 FINDINGS: Mediastinum: The mediastinum is normal in appearance. The heart silhouette is normal in size and morphology. Lung: Both lungs are unremarkable in appearance. No sign of pleural effusion seen. No pneumothorax is identified. Bone and Soft tissue: Unremarkable for age. Procedure Note Sony Smart MD - 04/11/2024 For Patients: As a result of the Cures Act, medical imagingexams and procedure reports are released immediately into your electronicmedical record. You may view this report before your referring provider.If you have questions, please contact your health care provider. INDICATION: Shortness of breath, sdc TECHNIQUE: Chest radiograph 2 views COMPARISON: 12/28/2022 FINDINGS: Mediastinum: The mediastinum is normal in appearance. The heart silhouetteis normal in size and morphology. Lung: Both lungs are unremarkable in appearance. No sign of pleuraleffusion seen. No pneumothorax is identified. Bone and Soft tissue: Unremarkable for age. IMPRESSION: 1. No acute cardiopulmonary disease is seen. Dictated by: Sony Smart MD @ 04/11/2024 01:15:53 (Electronically Signed) Andrea Kaplan MD GENERAL IMAGIN G * (ABNORMAL) SEDIMENTATION RATE (04/11/2024 12:49 AM CDT) Only the most recent of3 resultswithin the time period is included. SEDIMENTATION RATE 49(H) <15 mm/hr 2023 1:37 AM CDT [facility] [facility] Blood BLOOD SPECIMEN / Unknown Venipuncture / Unknown 04/11/2024 12:49 AM CDT 04/11/2024 1:02 AM CDT Andrea Kaplan MD HEMATOLOGY [facility] [address] [place] [address], * (ABNORMAL) CBC WITH AUTO DIFFERENTIAL (04/11/2024 12:49 AM CDT) Only the most recent of4 resultswithin the time period is included. WHITE BLOOD COUNT 8.1 4.5 - 11.0 thou/cu mm 04/11/2024 1:16 AM CDT [facility] RED BLOOD COUNT 3.78(L) 4.30 - 5.90 mil/cu mm 04/11/2024 1:16 AM CDT [facility] HEMOGLOBIN 10.3(L) 13.5 - 17.5 g/dL 04/11/2024 1:16 AM CDT [facility] HEMATOCRIT 29.7(L) 37.0 - 53.0 % 04/11/2024 1:16 AM CDT [facility] MCV 79(L) 80 - 100 fL 04/11/2024 1:16 AM CDT [facility] MCH 27.2 26.0 - 34.0 pg 04/11/2024 1:16 AM CDT [facility] MCHC 34.7 32.0 - 36.0 g/dL 04/11/2024 1:16 AM CDT [facility] RDW 13.4 11.5 - 15.5 % 04/11/2024 1:16 AM CDT [facility] PLATELET COUNT 307 140 - 440 thou/cu mm 04/11/2024 1:16 AM CDT [facility] MPV 10.0 6.5 - 11.0 fL 04/11/2024 1:16 AM CDT [facility] NRBC 0.0 % 04/11/2024 1:16 AM CDT [facility] ABS NRBC 0.0 thou /cu mm 04/11/2024 1:16 AM CDT [facility] % NEUT 48.7 % 04/11/2024 1:16 AM CDT [facility] % LYMPH 35.7 % 04/11/2024 1:16 AM CDT [facility] % MONO 13.8 % 04/11/2024 1:16 AM CDT [facility] % EOS 0.6 % 04/11/2024 1:16 AM CDT [facility] % BASO 1.0 % 04/11/2024 1:16 AM CDT [facility] % IMMATURE GRAN (METAS,MYELOS,NV OS) 0.2 % 04/11/2024 1:16 AM CDT [facility] ABSOLUTE NEUTROPHILS 4.0 1.7 - 7.0 thou/cu mm 04/11/2024 1:16 AM CDT [facility] ABSOLUTE LYMPHOCYTES 2.9 0.9 - 2.9 thou/cu mm 04/11/2024 1:16 AM CDT [facility] ABSOLUTE MONOCYTES 1.1(H) <0.9 thou/cu mm 04/11/2024 1:16 AM CDT [facility] ABSOLUTE EOSINOPHILS 0.1 <0.5 thou/cu mm 04/11/2024 1:16 AM CDT [facility] ABSOLUTE BASOPHILS 0.1 <0.3 thou/cu mm 04/11/2024 1:16 AM T [facility] ABSOLUTE IMMATURE GRANULOCYTES(MET ,MYELOS,PROS) 0.0 <0.3 thou/cu mm 04/11/2024 1:16 AM T [facility] Blood BLOOD SPECIMEN / Unknown Venipuncture / Unknown 04/11/2024 12:49 AM CDT 04/11/2024 1:02 AM CDT Andrea Kaplan MD HEMATOLOGY [facility] [address] [place] [id number], [place] * TROPONIN T (HS) ACUTE W/2HR REFLEX (04/11/2024 12:28 AM CDT) TROPONIN T HS 7 6-15 ng/L ng/L 04/11/2024 1:15 AM CDT [facility] Blood BLOOD SPECIMEN / Unknown Non-Lab Venipuncture / Unknown 04/11/2024 12:28 AM CDT 04/11/2024 12:43 AM CDT [facility] 04/11/2024 1:15 AM CDT hs-cTnT (Elecsys Troponin T Gen 5) concentration (s) above the sex-specific 99th percentile (16 ng/L or greater for males or 11 ng/L or greater for females) are indicative of myocardial injury. If initial hs-cTnT <=100 ng/L at presentation, a 0h/2h ABSOLUTE (ng/L) delta change (rising or falling) of >=10 ng/L suggests a significant change, whereas a 0h/2h delta change <=3 ng/L suggests no significant change. If initial hs-cTnT >100 ng/L at presentation, a 0h/2h/ RELATIVE (percent, %) delta change of 20% is suggested to distinguish patients with acute vs. chronic myocardial injury. There are multiple etiologies that can cause hs-cTnT increases above the 99th percentile (myocardial injury) other than acute myocardial infarction. Clinical context and careful clinical evaluation are critical for diagnosis and risk-stratification. The diagnosis of acute myocardial infarction requires a rising and/or falling pattern in hs-cTnT concentrations with at least one value above the sex-specific 99th percentile PLUS at least one of the following clinical criteria: ischemic symptoms, new or presumed new significant ST-T wave changes or new LBBB, development of pathological Q waves, imaging evidence of new loss of viable myocardium or new regional wall motion abnormality, or identification of intracoronary atherothrombosis or an acute angiographic culprit on coronary angiography. In appropriate low-risk patients with a non-ischemic electrocardiogram without active chest pain with a symptom onset >3-hours without recurrence, a single initial hs-cTnT<6 ng/L identifies patient with a very low risk in emergency department patient population. Andrea Kaplan MD CHEMISTRY Performing Organization Address [facility] Co de Phone Number [facility] [address] [place] [address], * (ABNORMAL) C-REACTIVE PROTEIN (04/11/2024 12:28 AM CDT) Only the most recent of3 resultswithin the time period is included. C-REACTIVE PROTEIN 1.5(H) <0.5 mg/dL 04/11/2024 1:15 AM CDT [facility] Blood BLOOD SPECIMEN / Unknown Non-Lab Venipuncture / Unknown 04/11/2024 12:28 AM CDT 04/11/2024 12:43 AM CDT Andrea Kaplan MD CHEMISTRY Performing Organization Address [facility] Co de Phone Number [facility] [address] [place] [address], * MAGNESIUM (04/11/2024 12:28 AM CDT) MAGNESIUM 1.8 1.6 - 2.6 mg/dL 04/11/2024 1:15 AM CDT [facility] Blood BLOOD SPECIMEN / Unknown Non-Lab Venipuncture / Unknown 04/11/2024 12:28 AM CDT 04/11/2024 12:43 AM CDT Andrea Kaplan MD CHEMISTRY Performing Organization Address [facility] de Phone Number [facility] [address] [place] [address], * (ABNORMAL) BASIC METABOLIC PANEL (04/11/2024 12:28 AM CDT) Only the most recent of6 resultswithin the time period is included. SODIUM 137 136 - 145 mmol/L 04/11/2024 1:15 AM CDT [facility] POTASSIUM 3.7 3.5 - 5.1 mmol/L 04/11/2024 1:15 AM CDT [facility] CHLORIDE 103 98 - 107 mmol/L 04/11/2024 1:15 AM CDT [facility] CO2,TOTAL 22 22 - 29 mmol/L 04/11/2024 1:15 AM CDT [facility] ANION GAP 12 5 - 18 04/11/2024 1:15 AM CDT [facility] GLUCOSE 90 70 - 99 mg/dL 04/11/2024 1:15 AM T [facility] CALCIUM 8.9 8.6 - 10.0 mg/dL 04/11/2024 1:15 AM CDT [facility] BUN 9 6 - 20 mg/dL 04/11/2024 1:15 AM T [facility] CREATININE 0.62(L) 0.70 - 1.20 mg/dL 04/11/2024 1:15 AM T [facility] BUN/CREAT RATIO 15 10 - 20 1:15 AM T [facility] eGFR >90 >90 mL/min/1.7 3m2 04/11/2024 1:15 AM T [facility] Comment:As of 2021, eG FR is calculated by the CKD-EPI creatinine equation without race adjustment. ??eGFR can be influenced by muscle mass, exercise, and diet. ??The reported eGFR is an estimation only and is only applicable if the renal function is stable. Blood BLOOD SPECIMEN / Unknown Non-Lab Venipuncture / Unknown 04/11/2024 12:28 AM CDT 04/11/2024 12:43 AM CDT Andrea Kaplan MD [facility] [address] [place] [address], * EKG 12 LEAD (04/10/2024 11:41 PM CDT) Only the most recent of3 resultswithin the time period is included. Interpretation Normal sinus rhythm Nonspecific ST abnormality Prolonged QT Abnormal ECG Anterior T wave abnormality and Prolonged QT Compared to ekg of 59-PTH-46 BEYOND NOW Ventricular Rate 89 BPM BEYOND NOW Atrial Rate 89 BPM BEYOND NOW P-R Interval 128 ms BEYOND NOW QRS Duration 92 ms BEYOND NOW QT 396 ms BEYOND NOW QTc 481 ms BEYOND NOW P [place] 55 degrees BEYOND NOW R [place] 52 degrees BEYOND NOW T [place] 53 degrees BEYOND NOW 04/10/2024 11:4 1 PM CDT 04/11/2024 11:30 AM CDT Andrea Kaplan MD EKG ORD BEYOND NOW [place], [place] * ALT (SGPT) (04/09/2024 2:02 PM CDT) ALT (SGPT) 29 10 - 50 IU/L 04/09/2024 2:30 PM CDT [facility] Blood BLOOD SPECIMEN / Unknown Non-Lab Venipuncture / Unknown 04/09/2024 2:02 PM CDT 04/09/2024 2:02 PM CDT Lula COLLIER CHEMISTRY Performing Organization Address City/[facility]/ZIP Co de Phone Number [facility] INTERNAL ZIP [phone] [place] [id number] * AST (SGOT) (04/09/2024 2:02 PM CDT) AST (SGOT) 19 10 - 50 IU/L 04/09/2024 2:30 PM CDT [facility] Blood BLOOD SPECIMEN / Unknown Non-Lab Venipuncture / Unknown 04/09/2024 2:02 PM CDT 04/09/2024 2:02 PM CDT Lula COLLIER CHEMISTRY Performing Organization Address City/[facility]/ZIP Co de Phone Number [facility] INTERNAL ZIP [phone] [place] [phone] * SCAN-LABORATORY REPORT (04/09/2024 12:00 AM CDT) Only the most recent of2 resultswithin the time period is included. Scanner OTHER * SCAN CORRESP-EKG RESULTS (04/06/2024 3:26 PM CDT) Only the most recent of2 resultswithin the time period is included. Narrative 04/06/2024 3:26 PM CDT Ordered by an unspecified provider. Other Clinical Staff OTHER * SCAN-CARDIAC STRIP (04/05/2024 8:51 AM CDT) Scanner OTHER * POTASSIUM (04/05/2024 5:29 AM CDT) Only the most recent of3 resultswithin the time period is included. POTASSIUM 4.5 3.5 - 5.1 mmol/L 04/05/2024 6:09 AM CDT [facility] Blood BLOOD SPECIMEN / Unknown Venipuncture / Unknown 04/05/2024 5:29 AM CDT 04/05/2024 5:49 AM CDT Bertha Gallego MD CHEMISTRY [facility] [address] [place] [address], * SCAN-CARDIAC STRIP (04/04/2024 7:39 PM CDT) Scanner OTHER * SCAN-CARDIAC STRIP (04/04/2024 7:39 PM CDT) Scanner OTHER * Insert midline catheter (04/04/2024 4:33 PM CDT) Narrative Calli Mora, JOSH - 04/04/2024 4:33 PM CDT Calli Mora, JOSH ? 04/04/2024 ??4:34 PM Midline Insertion Note 04/04/2024 ?? 4:33 PM Procedure education reviewed: Placement procedure and Questions answered, discussed with: Patient face to face. Patient face to face confirms understanding of procedure. Assembler Cards And Announcements used: No Reason for insertion: ??Home Care, IV antibiotics, and MD order Medical/ Surgical/ Allergies History reviewed: ??Yes. Preprocedure Verification: ??Yes 1) Provider Order verified 2) Patient identity verified; 3) side/site/procedure confirmed; 4) relevant information/documentation available, reviewed and properly matched to the patient; 5) For PICC insertions, consent accurate and complete or verified provider has ordered emergent placement; 6) equipment and supplies available Site Marking: ??Not Applicable Site marked if not in continuous attendance with the patient Time Out: ??Yes Time out was conducted just prior to starting procedure to verify the four required elements: 1) patient name and date of 2) confirmation that the correct side/site are marked if applicable, including visualization of the site lori 3) name of procedure including laterality if applicable, and 4) essential imaging and results are properly labeled and appropriately displayed, if applicable. Site assessment pre-insertion: ??Intact. Local anesthetic used at site: ??Yes, 1% Lidocaine. The following Central Line Insertion Checklist was used: Hand Hygiene: Yes Maximal Barrier Precautions including Sterile Gown, Hat and Mask: Yes Full Body Drape: Yes Site cleansed with: ??Chlorhexidine gluconate prep. MIDLINE/AXILLARY CATHETER 1 LUMEN Right;Basilic;Upper Arm Midline/Axillary (Active) 04/04/241631 Insertion Location: Right;Basilic;Upper Arm Vessel Diameter: 0.49 cm Sbkmiobt-lr-Gxnd Ratio (%): ?? Visible Catheter Length (cm): 0 cm Placed/Present Prior to Encounter: ?? Type: Non-Valved Catheter (IA) Size: ?? Size: 3 [place] Tip Location: Midline/Axillary Midline/Axillary mid-arm circumference (cm): 27 cm Total Length of Catheter (cm): 11 cm Insertion Attempts: 1 Placement Verification: Blood Return Removed Catheter Length (cm): ?? Visible Catheter Length (cm) 0 cm 04/04/24 163 Arm Circumference (cm) 27 cm 04/04/24 163 Status Lumen One Blood Return;Capped/Locked 04/04/24 163 Line Assessment Antimicrobial patch and dressing clean/dry/intact 04/04/24 1632 Site Description Dry/Flat 04/04/24 163 Line Intervention New dressing applied and NO hemostatic agent/gauze 04/04/24 1632 Dressing change due date 04/11/2024 04/04/24 1632 Line Motor Scooter Mechanic Name: Bard Line Type: Power Midline Lot Number: [id number] Access Assistance:Modified Seldinger Technique (Micro-Introducer) WITHOUT ??Dermatotomy (skin adi) and Ultrasound Guidance Post-insertion: ? Able to remove guidewire: ??Smoothly. ? Able to aspirate blood in each lumen: Yes ? Able to flush catheter without resistance in each lumen: ?? Yes Each lumen flushed with: ??20 ml(s) of 0.9% saline, and ??no Heparin. Cap applied to each lumen: ??Yes Line secured with: Stat-Lock ? Hospital dressing policy/procedure followed. Midline standing orders implemented: ??Yes X- ray pending: No, not applicable to midline insertion ? Insertion complications: None Patient tolerated the procedure: ??Yes Midline education reviewed: Given to patient Calli Mora RN .................... ??04/04/2024 ?? 4:34 PM ? Bertha Gallego MD IV ORD * SCAN-CARDIAC STRIP (04/04/2024 3:19 PM CDT) Scanner OTHER * SCAN-CARDIAC STRIP (04/04/2024 8:58 AM CDT) Scanner OTHER * (ABNORMAL) Platelets AM (04/04/2024 6:38 AM CDT) Only the most recent of2 resultswithin the time period is included. PLATELET COUNT 170 140 - 440 thou/cu mm 04/04/2024 7:05 AM CDT [facility] MPV 11.2(H) 6.5 - 11.0 fL 04/04/2024 7:05 AM CDT [facility] Blood BLOOD SPECIMEN / Unknown Venipuncture / Unknown 04/04/2024 6:38 AM CDT 04/04/2024 6:58 AM CDT Bertha Gallego MD HEMATOLOGY Performing Organization Address [facility] Co de Phone Number [facility] [address] [place] [address], * (ABNORMAL) Hemoglobin AM (04/04/2024 6:38 AM CDT) Only the most recent of2 resultswithin the time period is included. Pathologist [facility] HEMOGLOBIN 11.8(L) 13.5 - 17.5 g/dL 04/04/2024 7:05 AM CDT [facility] MCV 78(L) 80 - 100 fL 04/04/2024 7:05 AM CDT [facility] Blood BLOOD SPECIMEN / Unknown Venipuncture / Unknown 04/04/2024 6:38 AM CDT 04/04/2024 6:58 AM CDT Bertha Gallego MD HEMATOLOGY Performing Organization Address [facility] de Phone Number [facility] [address] [place] [address], * (ABNORMAL) Creatinine AM (04/04/2024 6:38 AM CDT) Pathologist [facility] eGFR >90 >90 mL/min/1.7 3m2 04/04/2024 7:50 AM CDT [facility] Comment:As of 2021, eG FR is calculated by the CKD-EPI creatinine equation without race adjustment. ??eGFR can be influenced by muscle mass, exercise, and diet. ??The reported eGFR is an estimation only and is only applicable if the renal function is stable. CREATININE 0.59(L) 0.70 - 1.20 mg/dL 04/04/2024 7:50 AM CDT [facility] Blood BLOOD SPECIMEN / Unknown Venipuncture / Unknown 04/04/2024 6:38 AM CDT 04/04/2024 6:58 AM CDT Bertha Gallego MD CHEMISTRY Performing Organization Address [facility] Co de Phone Number [facility] [address] * (ABNORMAL) Electrolyte panel AM (04/04/2024 6:38 AM CDT) SODIUM 135(L) 136 - 145 mmol/L 04/04/2024 7:50 AM CDT [facility] POTASSIUM 3.7 3.5 - 5.1 mmol/L 04/04/2024 7:50 AM CDT [facility] CHLORIDE 98 98 - 107 mmol/L 04/04/2024 7:50 AM CDT [facility] CO2,TOTAL 26 22 - 29 mmol/L 04/04/2024 7:50 AM CDT [facility] ANION GAP 11 5 - 18 04/04/2024 7:50 AM CDT [facility] Blood BLOOD SPECIMEN / Unknown Venipuncture / Unknown 04/04/2024 6:38 AM CDT 04/04/2024 6:58 AM CDT Bertha Gallego MD CHEMISTRY Performing Organization Address [facility] Co de Phone Number [facility] [address] [place] [address], * SCAN-CARDIAC STRIP (04/03/2024 11:26 PM CDT) Scanner OTHER * SCAN-CARDIAC STRIP (04/03/2024 5:36 PM CDT) Scanner OTHER * (ABNORMAL) INR AM (04/03/2024 7:37 AM CDT) Only the most recent of4 resultswithin the time period is included. INR 1.3(H) <1.3 04/03/2024 8:48 AM CDT [facility] PROTIME 14.0(H) 10.3 - 12.3 sec 04/03/2024 8:48 AM CDT [facility] Blood BLOOD SPECIMEN / Unknown Venipuncture / Unknown 04/03/2024 7:37 AM CDT 04/03/2024 8:12 AM CDT Narrative [facility] - 04/03/2024 8:48 AM CDT ?Therapeutic Range 2.0-3.0 for most anticoagulated patients 2.5-3.5 or 4.0 for high risk patients The INR is only used for patients on stable oral anticoagulant therapy. It makes no significant contribution to the diagnosis or treatment of patients whose Protime is prolonged for other reasons. INR results are increased when heparin levels exceed 1.0 U/mL, which corresponds to an aPTT >125 seconds if the patient is on UFH. Bertha Gallego MD HEMATOLOGY [facility] [address] [place] [address], * SCAN-CARDIAC STRIP (04/03/2024 12:35 AM CDT) Scanner OTHER * CT ANGIO HEAD AND NECK CAROTID (04/02/2024 6:50 PM CDT) Anatomical Region Laterality Modality BRAIN, NECK Computed Tomogra phy 04/02/2024 10:1 8 PM CDT Addenda Addendum by Joel Lal MD on 04/03/2024 10:39 AM CDT For Patients: ??As a result of the 21st Century Cures Act, medical imaging exams and procedure reports are released immediately into your electronic medical record. ??You may view this report before your referring provider. ?? If you have questions, please contact your health care provider. CLINICAL HISTORY: Stroke. TECHNIQUE: Standard helical CT image acquisition through the head following the administration of intravenous contrast was performed. 3D and MIP reconstructions were performed at a separate workstation and permanently archived. COMPARISON: None available. FINDINGS: No intracranial proximal large vessel occlusion or flow-limiting luminal stenosis. No evidence of cerebral aneurysm. No findings to suggest an arterial-venous shunting lesion. The major dural venous sinuses and deep venous system are patent. IMPRESSION: No intracranial proximal large vessel occlusion, flow-limiting luminal stenosis, or cerebral aneurysm. Please note that all CT scans at this facility use dose modulation, iterative reconstruction, and/or weight-based dosing when appropriate to reduce radiation dose to as low as reasonably achievable. Dictated by Joel Lal MD @ 04/03/2024 10:39:20 AM (Electronically Signed) Impressions 04/03/2024 10:36 AM CDT Patent cervical arterial vasculature without hemodynamically significant luminal stenosis. Please note that all CT scans at this facility use dose modulation, iterative reconstruction, and/or weight-based dosing when appropriate to reduce radiation dose to as low as reasonably achievable. Dictated by Joel Lal MD @ 04/03/2024 10:36:15 AM (Electronically Signed) Narrative 04/03/2024 10:36 AM CDT For Patients: ??As a result of the Cures Act, medical imaging exams and procedure reports are released immediately into your electronic medical record. ??You may view this report before your referring provider. ??If you have questions, please contact your health care provider. CLINICAL HISTORY: Stroke. TECHNIQUE: Standard helical CT image acquisition through the neck was performed after intravenous contrast bolus enhancement. 3D and MIP reconstructions were performed at a separate workstation and permanently archived. COMPARISON: None available. FINDINGS: The origins of the great vessels from the aortic arch are patent. ??The common carotid arteries are patent. No significant luminal stenoses of the proximal ICAs by NASCET criteria. The more distal cervical segments of the ICAs are patent. The origins and cervical segments of the vertebral arteries are patent. Markedly enlarged and heterogeneous thyroid gland. Procedure Note Joel Lal MD - 04/03/2024 For Patients: As a result of the Cures Act, medical imagingexams and procedure reports are released immediately into your electronicmedical record. You may view this report before your referring provider.If you have questions, please contact your health care provider. CLINICAL HISTORY: Stroke. TECHNIQUE: Standard helical CT image acquisition through the neck was performed afterintravenous contrast bolus enhancement. 3D and MIP reconstructions wereperformed at a separate workstation and permanently archived. COMPARISON: None available. FINDINGS: The origins of the great vessels from the aortic arch are patent. Thecommon carotid arteries are patent. No significant luminal stenoses of theproximal ICAs by NASCET criteria. The more distal cervical segments of theICAs are patent. The origins and cervical segments of the vertebralarteries are patent. Markedly enlarged and heterogeneous thyroid gland. IMPRESSION: Patent cervical arterial vasculature without hemodynamically significantluminal stenosis. Please note that all CT scans at this facility use dose modulation,iterative reconstruction, and/or weight-based dosing when appropriate toreduce radiation dose to as low as reasonably achievable. Dictated by Joel Lal MD @ 04/03/2024 10:36:15 AM (Electronically Signed) Tatyana Jose NP CT * ECHO DOUG WO CONTRAST W COLOR W LTD DOPPLER (04/02/2024 3:02 PM CDT) EJECTION FRACTION 55 - 60% Anatomical Region Laterality Modality Ultrasound 04/02/2024 2:01 PM CDT Narrative 04/02/2024 3:55 PM CDT TRANSESOPHAGEAL ECHOCARDIOGRAM YAHAIRA CHOWDHURY ? Accession#: ?? [id number] : ?1995 28 years Study Date: ?? 04/02/2024 2:01:14 PM Gender: M ?BP: ? 130/74 mmHg Height: 175.00 cm ?BSA: ?1.89 m? ? ? Weight: 74.00 kg ? Tech: ? MKS ? Referring MD: ILA GALLOWAY Site: ? [facility] Reading Location: [facility] Patient Location: Inpatient. Procedure: DOUG, Color Doppler, Limited Spectral Doppler and 3D Imaging. Indication for study: IE Cardiac Rhythm: Regular.Study quality: Good. Final Impressions: 1. Normal left ventricular size, normal global systolic function with an estimated EF of 55 - 60%. 2. Mildly enlarged left atrium. 3. The mitral valve is P2 vegetation is noted, no perforation, 0.8 cm x 0.7 cm, moderate mitral regurgitation. 4. 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 Moderate tricuspid regurgitation. 5. No evidence of thrombus present in the left atrial appendage. 6. 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 There is no obviious communication here, but thickening is noted. 7. PFO present with left to right flow at rest. Procedure comments: Indications, goals, risks and alternatives of the procedure were discussed with the patient and informed consent was obtained. The patient received oral Lidocaine to anesthetized the posterior oropharynx, sedation of intravenous Propofol and general anesthesia. See procedural record for anesthesia details. Prior to performance of procedure, time out was called to accurately identify the patient and procedure. The Joanne probe was passed without difficulty. DOUG, Color Doppler, Limited Spectral Doppler and 3D Imaging was performed. The patient developed no apparent complications during the procedure. Estimated Blood Loss: 0 ml Chamber Sizes and Function Normal left ventricular size, normal global systolic function with an estimated EF of 55 - 60%. Left atrial size is mildly enlarged. The left atrial appendage is well visualized and there is no evidence of thrombus present. Normal left atrial appendage flow velocities. Right ventricular cavity size is normal, global systolic RV function is normal. The right atrium is severely enlarged. The pulmonary artery is of normal size and origin. The sinus of Valsalva is normal sized. The ascending aorta is normal sized. Aortic arch is normal sized with no significant plaque visualized. Descending aorta is normal sized with no significant plaque visualized. Valves, RV Pressures and Diastolic Function The aortic valve is trileaflet, no stenosis and trivial regurgitation. The mitral valve is P2 vegetation is noted, no perforation, 0.8 cm x 0.7 cm, moderate mitral regurgitation. 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 Tricuspid regurgitation is moderate. The pulmonic valve is normal. Trace pulmonary regurgitation. Masses, Effusion, Shunts There is no pericardial effusion. PFO present. Agitated saline injection not done. MEASUREMENTS AND CALCULATIONS 2-D Measurements and LV Function: HR 79 bpm . This study was interpreted by an [facility] accredited facility. ??Final ?? Procedure Note Janine Mcintyre MD - 04/02/2024 TRANSESOPHAGEAL ECHOCARDIOGRAM YAHAIRA CHOWDHURY : 1995 28 years Study Date: 04/02/2024 2:01:14 PM Gender: M BP: 130/74 mmHg Height: 175.00 cm BSA: 1.89 m? ? ? Weight: 74.00 kg Tech: Giovani Referring MD: ILA GALLOWAY Site: [facility] Reading Location: [facility] IP Patient Location: Inpatient. Procedure: DOUG, Color Doppler, Limited Spectral Doppler and 3D Imaging. Indication for study: IE Cardiac Rhythm: Regular.Study quality: Good. Final Impressions: 1. Normal left ventricular size, normal global systolic function with anestimated EF of 55 - 60%. 2. Mildly enlarged left atrium. 3. The mitral valve is P2 vegetation is noted, no perforation, 0.8 cm x0.7 cm, moderate mitral regurgitation. 4. 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 Moderate tricuspidregurgitation. 5. No evidence of thrombus present in the left atrial appendage. 6. Proximal RVOT mobile mass no associated with valve structures,consistent with endocarditis, consider evaluating the aorta pulmonarywindow. There is no obviious communication here, but thickening isnoted. 7. PFO present with left to right flow at rest. Procedure comments: Indications, goals, risks and alternatives of theprocedure were discussed with the patient and informed consent wasobtained. The patient received oral Lidocaine to anesthetized theposterior oropharynx, sedation of intravenous Propofol and generalanesthesia. See procedural record for anesthesia details. Prior toperformance of procedure, time out was called to accurately identify thepatient and procedure. The Joanne probe was passed without difficulty. DOUG,Color Doppler, Limited Spectral Doppler and 3D Imaging was performed. Thepatient developed no apparent complications during the procedure. Estimated Blood Loss: 0 ml Chamber Sizes and Function Normal left ventricular size, normal global systolic function with anestimated EF of 55 - 60%. Left atrial size is mildly enlarged. The leftatrial appendage is well visualized and there is no evidence of thrombuspresent. Normal left atrial appendage flow velocities. Right ventricularcavity size is normal, global systolic RV function is normal. The rightatrium is severely enlarged. The pulmonary artery is of normal size andorigin. The sinus of Valsalva is normal sized. The ascending aorta isnormal sized. Aortic arch is normal sized with no significant plaquevisualized. Descending aorta is normal sized with no significant plaquevisualized. Valves, RV Pressures and Diastolic Function The aortic valve is trileaflet, no stenosis and trivial regurgitation. Themitral valve is P2 vegetation is noted, no perforation, 0.8 cm x 0.7 cm,moderate mitral regurgitation. The tricuspid valve is myxomatous.Tricuspid regurgitation is moderate. The pulmonic valve is normal. Tracepulmonary regurgitation. Masses, Effusion, Shunts There is no pericardial effusion. PFO present. Agitated saline injectionnot done. MEASUREMENTS AND CALCULATIONS 2-D Measurements and LV Function: HR 79 bpm . This study was interpreted by an [facility] accredited facility. Final Ila COLLIER ECHO ORD * SCAN CORRESP-LABORATORY RESULTS (04/02/2024 2:13 PM CDT) Narrative 04/02/2024 2:13 PM CDT Ordered by an unspecified provider. Other Clinical Staff OTHER * Blood culture DAILY (04/02/2024 5:57 AM CDT) Only the most recent of3 resultswithin the time period is included. CULTURE No Growth. 04/07/2024 10:09 AM CDT [facility] Blood BLOOD SPECIMEN / Unknown Venipuncture / Unknown 04/02/2024 5:57 AM CDT 04/02/2024 6:36 AM CDT Sena Lopez MD MICROBIOLOGY [facility] [address] [place] [address], [place] * SCAN-CARDIAC STRIP (04/01/2024 11:29 PM CDT) Scanner OTHER * SCAN-CARDIAC STRIP (04/01/2024 8:03 AM CDT) Scanner OTHER * SCAN-CARDIAC STRIP (04/01/2024 2:25 AM CDT) Scanner OTHER * SCAN-CARDIAC STRIP (03/31/2024 4:10 PM CDT) Scanner OTHER * US ASPIRATION FLUID (03/31/2024 12:42 PM CDT) Anatomical Region Laterality Modality CHEST N/A Ultrasound Narrative 03/31/2024 4:37 PM CDT RADIOLOGY POST PROCEDURE NOTE ?? 03/31/2024 Yahaira Chowdhury [id number] 1995 INFORMEDCONSENT: In my discussion, prior to the signing of the consent, I reviewed the procedure, benefits, risks, long-term effects, treatment options, possible use of pain or sedation medications, and how the procedure will meet the treatment goal with the patient and/or family. The patient was given ample time to ask questions. All questions were answered. ?? INDICATIONS: Right hip pain. ??Synovitis on MRI with very small trace of fluid. PROCEDURE PERFORMED: Ultrasound-guided aspiration right hip. PROCEDURE NARRATIVE: Initial high-resolution ultrasound was performed. ??There is no fluid in the joint identified sonographically. ??After local anesthetic a 22-gauge spinal needle was advanced to the femoral head cortex. ??No fluid was withdrawn. ??A irrigation and subsequent withdrawal of a small amount of fluid was performed using 1 to 2 cc of normal saline. ??This was then sent as the specimen. ??Needle was removed. POST-PROCEDURE DIAGNOSIS: ??Status post aspiration of the right hip ultrasound-guidance. PATIENT POSITION: Supine ANTISEPTIC PREPARATION and BARRIER TECHNIQUES USED: ??skin was prepped and draped in the usual sterile fashion IMAGING GUIDANCE FOR ACCESS / PROCEDURE: Ultrasound-guided permanently recorded images are archived in PACS. ACCESS LOCATION / SITE / TECHNIQUE: Right side right hip EQUIPMENT UTILIZED: 22-gauge spinal needle CLOSURE: None RADIATION DOSE: ?? total exam DLP: Not applicable no radiation ultrasound-guidance mGy-cm MEDICATIONS GIVEN: Local anesthetic. ??1% Lidocaine was used for local anesthesia. SPECIMEN(S): Described above COMPLICATIONS: No complications noted DRAINS: None ESTIMATED BLOOD LOSS: ??Less than 10 cc. PHYSICIAN(S) AND ASSISTANTS (if any): ??Cholo Carmona MD Additional Comments: Please call with questions. Cholo Carmona MD [place] Protocol A. Pre-procedure verification complete yes 1-relevant information / documentation available, reviewed and properly matched to the patient; 2-consent accurate and complete, 3-equipment and supplies available B. Site marking complete yes Site marked if not in continuous attendance with patient C. TIME OUT completed yes Time Out was conducted just prior to starting procedure to verify the eight required elements: 1-patient identity, 2-consent accurate and complete, 3-position, 4-correct side/site marked (if applicable), 5-procedure, 6-relevant images / results properly labeled and displayed (if applicable), 7-antibiotics / irrigation fluids (if applicable), 8-safety precautions. Savanah COLLIER [facility] * Body Fluid Cell Count/Dif (03/31/2024 12:40 PM CDT) BODY FLUID SOURCE Synovial Fluid 03/31/2024 3:15 PM CDT [facility] Comment:Right hip BODY FLUID COLOR Blood Tinged 03/31/2024 3:15 PM CDT [facility] BODY FLUID CLARITY Clear 03/31/2024 3:15 PM CDT [facility] TOTAL NUCLEATED CELLS, BF 2 /cu mm 03/31/2024 3:15 PM CDT [facility] RED BLOOD COUNT, BODY FLUID 2,920 /cu mm 03/31/2024 3:15 PM CDT [facility] % NEUTROPHILS, BODY FLUID 94 % 03/31/2024 3:15 PM CDT [facility] % LYMPHOCYTES, BODY FLUID 6 % 03/31/2024 3:15 PM CDT [facility] Body Fluid SYNOVIAL FLUID SPECIMEN / Unknown Non-Blood / Unknown 03/31/2024 12:40 PM CDT 03/31/2024 12:59 PM CDT Narrative [facility] - 03/31/2024 3:15 PM CDT TO ORDER BODY FLUID CULTURES, USE; [id number] BODY FLUID CULTURE, STAIN Savanah COLLIER BODY FLUID Performing Organization Address [facility] de Phone Number [facility] [address] [address], [place] * Crystal ID Body Fluid No Urine (03/31/2024 12:40 PM CDT) MONOSODIUM URATES None Seen None Seen, Present, Not Present 03/31/2024 2:39 PM CDT [facility] CALCIUM PYROPHOSPHATES None Seen None Seen, Present, Not Present 03/31/2024 2:39 PM CDT [facility] OTHER CRYSTALS 03/31/2024 2:39 PM CDT [facility] SPECIMEN SOURCE Right hip 2:39 PM CDT [facility] Body Fluid SYNOVIAL FLUID SPECIMEN / Unknown Non-Blood / Unknown 03/31/2024 12:40 PM CDT 03/31/2024 12:59 PM CDT Savanah COLLIER BODY FLUID Performing Organization Address [facility] de Phone Number [facility] [address] [address], [place] * XR ORTHOPANTOGRAM (03/31/2024 12:31 PM CDT) Anatomical Region Laterality Modality PANOREX Digital Radiogra phy Impressions 03/31/2024 12:41 PM CDT There no osseous lesions of the mandible. Dental restorations are noted. No other specific abnormalities of the dentition. Narrative 03/31/2024 12:41 PM CDT INDICATION Dental clearance for cardiac surgery. TECHNIQUE Panorex 1 view mandible. Ana [facility] * MR HEAD BRAIN WWO (03/31/2024 11:31 AM CDT) Anatomical Region Laterality Modality BRAIN, HEAD Magnetic Resonan ce 03/31/2024 4:00 PM CDT Impressions 03/31/2024 4:00 PM CDT 1. Several scattered punctate acute/early subacute infarcts within the supratentorial and infratentorial parenchyma, as above. 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 2. No evidence of intracranial hemorrhage. 3. Paranasal sinus disease, as above. Dictated by Joel Lal MD @ 03/31/2024 4:00:09 PM (Electronically Signed) Narrative 03/31/2024 4:00 PM CDT For Patients: ??As a result of the Cures Act, medical imaging exams and procedure reports are released immediately into your electronic medical record. ??You may view this report before your referring provider. ??If you have questions, please contact your health care provider. CLINICAL HISTORY: Endocarditis and headaches; concern for septic emboli. TECHNIQUE: Multi-sequence, multiplanar MRI examination of the brain was performed. Contrast: 15mL of Clariscan was administered intravenously. COMPARISON: None available. FINDINGS: There are several scattered punctate foci of restricted diffusion with associated T2/FLAIR hyperintensity within the supratentorial and infratentorial parenchyma including the right cerebellar hemisphere, medial left cerebellar hemisphere/vermis, and within the cortex/subcortical white matter of the left orbitofrontal gyri, left parietal lobe, precentral gyrus of the left frontal lobe, and the anterior left middle frontal gyrus. 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 No associated pathologic enhancement. No evidence of intracranial hemorrhage or significant mass effect or midline shift. The ventricles are normal in size and morphology. The orbits are unremarkable. Subtotal opacification of the left frontal sinus and frontal sinus drainage pathway as well as mucosal thickening of the left greater than right anterior ethmoid air cells. The mastoid air cells are clear. The calvarium is unremarkable. Procedure Note Joel Lal MD - 03/31/2024 For Patients: As a result of the Century Cures Act, medical imagingexams and procedure reports are released immediately into your electronicmedical record. You may view this report before your referring provider.If you have questions, please contact your health care provider. CLINICAL HISTORY: Endocarditis and headaches; concern for septic emboli. TECHNIQUE: Multi-sequence, multiplanar MRI examination of the brain was performed. Contrast: 15mL of Clariscan was administered intravenously. COMPARISON: None available. FINDINGS: There are several scattered punctate foci of restricted diffusion withassociated T2/FLAIR hyperintensity within the supratentorial andinfratentorial parenchyma including the right cerebellar hemisphere,medial left cerebellar hemisphere/vermis, and within thecortex/subcortical white matter of the left orbitofrontal gyri, leftparietal lobe, precentral gyrus of the left frontal lobe, and the anteriorleft middle frontal gyrus. This is most consistent with acute/earlysubacute infarcts secondary to central emboli. No associated pathologicenhancement. No evidence of intracranial hemorrhage or significant masseffect or midline shift. The ventricles are normal in size and morphology. The orbits are unremarkable. Subtotal opacification of the left frontal sinus and frontal sinusdrainage pathway as well as mucosal thickening of the left greater thanright anterior ethmoid air cells. The mastoid air cells are clear. The calvarium is unremarkable. IMPRESSION: 1. Several scattered punctate acute/early subacute infarcts within thesupratentorial and infratentorial parenchyma, as above. The distributionis most suggestive of a central embolic source, possibly septic emboligiven the history of endocarditis. 2. No evidence of intracranial hemorrhage. 3. Paranasal sinus disease, as above. Dictated by Joel Lal MD @ 03/31/2024 4:00:09 PM (Electronically Signed) Sena Lopez MD MR * MR PELVIS W/WO CONTRAST (03/31/2024 11:30 AM CDT) Anatomical Region Laterality Modality Pelvis Magnetic Resonan ce 03/31/2024 12:4 9 PM CDT Impressions 03/31/2024 12:49 PM CDT 1. Synovial thickening involving the right hip compatible with synovitis. Small amount of right hip joint fluid. Underlying cam morphology of the proximal femur. Though technique is not optimal for evaluation of the labrum, the anterior superior labrum appears attenuated which may reflect sequelae of prior tearing. Some limited acetabular articular cartilage loss is present superior laterally. No erosive change. 2. Cam morphology left proximal femur. No left hip joint effusion or synovial thickening. 3. Reactive bone marrow edema involving the greater trochanters bilaterally. No fracture or osteomyelitis. 4. Edema involving the right-sided adductor musculature may relate to muscle strain, reactive muscle edema or inflammatory muscle edema. No intramuscular collection. 5. No soft tissue abscess. 6. Small amount of pelvic free fluid. Dictated by Harris Child MD @ 03/31/2024 12:49:45 PM (Electronically Signed) Narrative 03/31/2024 12:49 PM CDT For Patients: ??As a result of the Cures Act, medical imaging exams and procedure reports are released immediately into your electronic medical record. ??You may view this report before your referring provider. ??If you have questions, please contact your health care provider. CLINICAL INDICATION: Pain. Concern for septic arthritis or osteomyelitis. COMPARISON STUDIES: Radiographs from 03/30/2024. TECHNICAL: Noncontrast and contrast-enhanced MRI of the pelvis. 15 milliliters of clariscan intravenous gadolinium was administered for the postcontrast portion of the study. Axial sagittal and coronal T1, T2, stir and postcontrast T1 weighted images were acquired. 1.5 skye MRI scanner. FINDINGS: Right hip: Cam morphology of the right proximal femur. There is synovial thickening involving the right hip compatible with synovitis. A small amount of hip joint fluid is present. There is some periarticular soft tissue edema present. Technique not optimized for evaluation of the acetabular labrum though the anterosuperior acetabular labrum appears attenuated which may reflect sequelae of prior tearing. No erosive change. There appears to be some localized articular cartilage wear involving the superolateral acetabulum. Femoral head articular surface appears smooth. Left hip: Cam morphology of the left proximal femur. No left hip joint synovial thickening or effusion. There is likely some acetabular articular cartilage wear anterosuperiorly to superior laterally. Femoral head articular surface appears maintained. Labrum grossly intact. Osseous structures: Bone marrow edema is present within the greater trochanters bilaterally, likely reactive. There is no greater trochanteric fracture nor is there osteomyelitis. Intermediate marrow signal within the pelvis relates to red marrow. Musculotendinous structures and bursae: On the right, there is some periarticular soft tissue edema about the hip including edema involving the adductor musculature. This could relate to strain, reactive muscle edema or inflammatory edema. There is no intramuscular collection. No distal gluteal tendon tear nor trochanteric bursal fluid collection. Common hamstring tendons are intact. The distal iliopsoas tendons are intact. Other findings: No soft tissue fluid collection to suggest a soft tissue abscess. Small inguinal region lymph nodes are not technically enlarged by imaging criteria. No evidence of sacroiliitis. Pubic symphysis intact. Intrapelvic soft tissues: Small amount of pelvic free fluid. No inguinal hernia. Procedure Note Harris Child MD - 03/31/2024 For Patients: As a result of the Cures Act, medical imagingexams and procedure reports are released immediately into your electronicmedical record. You may view this report before your referring provider.If you have questions, please contact your health care provider. CLINICAL INDICATION: Pain. Concern for septic arthritis or osteomyelitis. COMPARISON STUDIES: Radiographs from 03/30/2024. TECHNICAL: Noncontrast and contrast-enhanced MRI of the pelvis. 15 milliliters ofclariscan intravenous gadolinium was administered for the postcontrastportion of the study. Axial sagittal and coronal T1, T2, stir andpostcontrast T1 weighted images were acquired. 1.5 skye MRI scanner. FINDINGS: Right hip: Cam morphology of the right proximal femur. There is synovial thickeninginvolving the right hip compatible with synovitis. A small amount of hipjoint fluid is present. There is some periarticular soft tissue edemapresent. Technique not optimized for evaluation of the acetabular labrumthough the anterosuperior acetabular labrum appears attenuated which mayreflect sequelae of prior tearing. No erosive change. There appears to besome localized articular cartilage wear involving the superolateralacetabulum. Femoral head articular surface appears smooth. Left hip: Cam morphology of the left proximal femur. No left hip joint synovialthickening or effusion. There is likely some acetabular articularcartilage wear anterosuperiorly to superior laterally. Femoral headarticular surface appears maintained. Labrum grossly intact. Osseous structures: Bone marrow edema is present within the greater trochanters bilaterally,likely reactive. There is no greater trochanteric fracture nor is thereosteomyelitis. Intermediate marrow signal within the pelvis relates to redmarrow. Musculotendinous structures and bursae: On the right, there is some periarticular soft tissue edema about the hipincluding edema involving the adductor musculature. This could relate tostrain, reactive muscle edema or inflammatory edema. There is nointramuscular collection. No distal gluteal tendon tear nor trochantericbursal fluid collection. Common hamstring tendons are intact. The distaliliopsoas tendons are intact. Other findings: No soft tissue fluid collection to suggest a soft tissue abscess. Smallinguinal region lymph nodes are not technically enlarged by imagingcriteria. No evidence of sacroiliitis. Pubic symphysis intact. Intrapelvic soft tissues: Small amount of pelvic free fluid. No inguinal hernia. IMPRESSION: 1. Synovial thickening involving the right hip compatible with synovitis.Small amount of right hip joint fluid. Underlying cam morphology of theproximal femur. Though technique is not optimal for evaluation of thelabrum, the anterior superior labrum appears attenuated which may reflectsequelae of prior tearing. Some limited acetabular articular cartilageloss is present superior laterally. No erosive change. 2. Cam morphology left proximal femur. No left hip joint effusion orsynovial thickening. 3. Reactive bone marrow edema involving the greater trochantersbilaterally. No fracture or osteomyelitis. 4. Edema involving the right-sided adductor musculature may relate tomuscle strain, reactive muscle edema or inflammatory muscle edema. Nointramuscular collection. 5. No soft tissue abscess. 6. Small amount of pelvic free fluid. Dictated by Harris Child MD @ 03/31/2024 12:49:45 PM (Electronically Signed) Cherelle Fiore NP MR * SCAN-CARDIAC STRIP (03/31/2024 8:39 AM CDT) Scanner OTHER * (ABNORMAL) PLATELET ESTIMATE (03/31/2024 7:40 AM CDT) PLATELET ESTIMATE Decreased (A) Adequate, No estimate 03/31/2024 10:14 AM CDT [facility] Blood BLOOD SPECIMEN / Unknown Butterfly / Unknown 03/31/2024 7:40 AM CDT 03/31/2024 7:56 AM CDT Bertha Gallego MD HEMATOLOGY Performing Organization Address [facility] Co de Phone Number [facility] [address] [place] [id number], [place] * Treponema pallidum AM (03/31/2024 7:40 AM CDT) TREPONEMA PALLIDUM Non-Reacti ve Non-Reacti ve 03/31/2024 8:50 AM CDT [facility] Blood BLOOD SPECIMEN / Unknown Butterfly / Unknown 03/31/2024 7:40 AM CDT 03/31/2024 7:56 AM CDT Sena Lopez MD SEND OUTS Performing Organization Address [facility] de Phone Number [facility] [address] [place] [id number], [place] * ANTI HCV (03/31/2024 7:40 AM CDT) HEPATITIS C ANTIBODY Non-Reacti ve Non-React fabricio 03/31/2024 8:49 AM CDT [facility] Comment:Please note, per www .CDC.gov: If a patient is known to be at high risk of HCV infection, or is symptomatic, and the physician's suspicion of HCV infection is high, HCV RNA testing is often employed and is of diagnostic value, even after an initial negative anti-HCV test result. Blood BLOOD SPECIMEN / Unknown Butterfly / Unknown 03/31/2024 7:40 AM CDT 03/31/2024 7:56 AM CDT Sena Lopez MD SEND OUTS Performing Organization Address [facility] Co de Phone Number [facility] [address] [place] [id number], [place] * SCAN-CARDIAC STRIP (03/31/2024 12:41 AM CDT) Scanner OTHER * CORTISOL TOTAL (03/30/2024 7:59 PM CDT) CORTISOL,TOTAL 15.0 ug/dL 03/30/2024 8:59 PM CDT [facility] Blood BLOOD SPECIMEN / Unknown Butterfly / Unknown 03/30/2024 7:59 PM CDT 03/30/2024 8:05 PM CDT Narrative [facility] - 03/30/2024 8:59 PM CDT Cortisol ?Morning Hours ?6:00 ??AM - 10:00 AM ?(4.8-19.5 ug/dL) Cortisol ?Afternoon Hours ??4:00 ??PM - ??8:00 PM ?(2.5-11.9 ug/dL) ? Biotin supplements may cause clinically significant interference for this test assay. ??If interference is suspected, it is strongly recommended that biotin is discontinued for at least one week prior to retesting. Micheal Mae MD CHEMISTRY Performing Organization Address City/[facility]/ZIP Co de Phone Number [facility] [address] [place] [address], [place] * GC Chlamydia trach probe URINE (03/30/2024 6:12 PM CDT) CHLAMYDIA PROBE Negative 10:20 PM CDT [facility] N GONORRHOEAE PROBE Negative 03/30/2024 10:20 PM CDT [facility] Other URINE SPECIMEN / Unknown Non-Blood / Unknown 03/30/2024 6:12 PM CDT 03/30/2024 6:22 PM CDT Sena Lopez MD MICROBIOLOGY Performing Organization Address City/[facility]/ZIP Co de Phone Number [facility] [address] [place] [address], [place] * XR HIP 2 OR 3 VIEWS W PELVIS RIGHT (03/30/2024 2:52 PM CDT) Anatomical Region Laterality Modality HIPS, HIPR, Pelvis Digital Radio graphy 03/30/2024 3:07 PM CDT Narrative 03/30/2024 3:07 PM CDT For Patients: ??As a result of the Cures Act, medical imaging exams and procedure reports are released immediately into your electronic medical record. ??You may view this report before your referring provider. ??If you have questions, please contact your health care provider. Indication: Hip pain, known infection. Technique: Three views pelvis and right hip. Comparison: None. Findings/Impression: No acute displaced fracture or malalignment. No soft tissue swelling. Joint spaces are maintained. Bony mineralization is age appropriate. Dictated by Josiah Hollingsworth MD @ Mar 30 2024 ??3:07PM (Electronically Signed) [email or web address] Procedure Note Josiah Hollingsworth MD - 03/30/2024 For Patients: As a result of the Cures Act, medical imagingexams and procedure reports are released immediately into your electronicmedical record. You may view this report before your referring provider.If you have questions, please contact your health care provider. Indication: Hip pain, known infection. Technique: Three views pelvis and right hip. Comparison: None. Findings/Impression: No acute displaced fracture or malalignment. No soft tissue swelling. Joint spaces are maintained. Bony mineralization is age appropriate. Dictated by Josiah Hollingsworth MD @ Mar 30 2024 3:07PM (Electronically Signed) [email or web address] Cherelle Fiore [facility] * (ABNORMAL) Drug screen, rapid urine inhouse TODAY (03/30/2024 2:24 PM CDT) THC METABOLITES,TIFFANIE L Non-negative , consider further testing if indicated(A) Not Detected 03/30/2024 3:11 PM CDT [facility] PCP,QUAL Not Detected Not Detected 03/30/2024 3:11 PM CDT [facility] COCAINE,QUAL Not Detected Not Detected 03/30/2024 3:11 PM CDT [facility] METHAMPHETAMINE , QUALITATIVE Not Detected Not Detected 03/30/2024 3:11 PM CDT [facility] OPIATES,QUAL Not Detected Not Detected 03/30/2024 3:11 PM CDT [facility] AMPHETAMINE, QUALITATIVE Not Detected Not Detected 03/30/2024 3:11 PM CDT [facility] BENZODIAZEPINES ,QUAL Not Detected Not Detected 03/30/2024 3:11 PM CDT [facility] TRICYCLICS,QUAL Not Detected Not Detected 03/30/2024 3:11 PM CDT [facility] METHADONE, QUALITATIVE Not Detected Not Detected 03/30/2024 3:11 PM CDT [facility] BARBITURATES,QU AL Not Detected Not Detected 03/30/2024 3:11 PM CDT [facility] OXYCODONE, QUALITATIVE Non-negative , consider further testing if indicated(A) Not Detected 03/30/2024 3:11 PM CDT [facility] BUPRENORPHINE, QUALITATIVE Not Detected Not Detected 03/30/2024 3:11 PM CDT [facility] Urine URINE SPECIMEN / Unknown Non-Blood / Unknown 03/30/2024 2:24 PM CDT 03/30/2024 2:38 PM CDT [facility] - 03/30/2024 3:11 PM CDT Please Note: ?? This is a screening test only, all results are unconfirmed and should be used for medical purposes only. ??Unconfirmed results must not be used for non-medical purposes (e.g., employment testing, legal testing). ??Suggest analyte specific confirmation for all non-negative results. ??Specimens will be held for 24 hours if additional testing is needed. ?? The following threshold concentrations are used for this analysis: ? Drug ? Screening Threshold ? Buprenorphine ? 10 ng/mL PCP ? 25 ng/mL ?? THC Metabolites ? 50 ng/mL *Opiates ? 100 ng/mL Oxycodone ?100 ng/mL Cocaine ?150 ng/mL Benzodiazepines ?150 ng/mL ?? Methadone ?200 ng/mL ?? Barbiturates ? 200 ng/mL Tricyclic Antidepressants ?300 ng/mL ?? Amphetamines ? 500 ng/mL ?? Methamphetamines ? 500 ng/mL ?*Includes related compounds: ? Codeine ?50 ng/mL ? Heroin ?100 ng/mL ? Morphine ?100 ng/mL ? Hydrocodone ? 400 ng/mL ? Hydromorphone ? 800 ng/mL ?Venlafaxine (Effexor) is a known cross reactant in the PCP ?assay. ??If clinically indicated, order PCP confirmation. Bertha Gallego MD URINE [facility] [address] [place] [address], * ECHO TTE COMPLETE WO CONTRAST (03/30/2024 12:47 PM CDT) AORTIC VALVE MEAN PG 15 mmHg EJECTION FRACTION 72 % PEAK TR VELOCITY 4.4 m/s LVEDD 6.0 cm Anatomical Region Laterality Modality Ultrasound 03/30/2024 10:3 5 AM CDT Narrative 03/30/2024 1:54 PM CDT ECHOCARDIOGRAM YAHAIRA CHOWDHURY ? Accession#: ?? [id number] : ?1995 28 years Study Date: ?? 03/30/2024 10:35:23 AM Gender: M ?BP: ? 149/83 mmHg Height: 175.00 cm ?BSA: ?1.96 m? ? ? Weight: 80.00 kg ? Tech: ? MH ? Referring MD: BERTHA GALLEGO Site: ? [facility] Reading Location: [facility] IP Patient Location: Inpatient. Procedure: 2D, 3D Imaging, Color Doppler and Spectral Doppler. Indication for study: concern for endocarditis Cardiac Rhythm: Sinus tachycardia.Study quality: Good. Final Impressions: 1. Mild to moderately increased left ventricular size, normal wall thickness, normal global systolic function, calculated EF of 72 %. 2. Right ventricular cavity size is severely enlarged, global systolic RV function is normal. Mobile density seen in the basal RV septal wall, adjacent to the aortic root. 3. The mitral valve is degenerative and thicknened, moderate to severe mitral regurgitation. There is a mobile echodensity structure in the posterior leaflet of the mitral, measuring 0.6 cm x 0.6 cm. ? 4. Moderate-severe tricuspid regurgitation. 5. 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 6. Severely increased estimated pulmonary pressures by tricuspid regurgitation velocity and right atrial pressure (77 mmHg plus RAP). Comparison There are no prior studies on this patient for comparison purposes. Chamber Sizes and Function Mild to moderately increased left ventricular size, normal wall thickness, normal global systolic function, calculated EF of 72 %. Left atrial size is severely enlarged. Right ventricular cavity size is severely enlarged, global systolic RV function is normal. The right atrium is severely enlarged. Right atrial volume index is 75 ml/m? ? ?. Right atrial area is 35 cm? ? ?. The pulmonary artery is of normal size and origin. The sinus of Valsalva is normal sized. The ascending aorta is normal sized. Valves, RV Pressures and Diastolic Function The aortic valve is trileaflet, mild stenosis and no regurgitation. The mitral valve is degenerative, moderate to severe mitral regurgitation. Indeterminate pattern of LV diastolic filling. The tricuspid valve is degenerative in appearance. Tricuspid regurgitation is moderate-severe. The tricuspid regurgitant velocity is 4.4 m/s, the estimated right ventricular systolic pressure is 77 mmHg plus right atrial pressure. There is severely increased estimated pulmonary pressure by tricuspid regurgitation velocity and right atrial pressure. The pulmonic valve is normal. Mild pulmonary regurgitation. Pulmonary veins show a systolic blunting flow pattern. Masses, Effusion, Shunts There is no pericardial effusion. The inferior vena cava is dilated, respiratory size variation plethora. No left to right shunting was detected by limited color flow Doppler interrogation of the interatrial septum. MEASUREMENTS AND CALCULATIONS 2-D Measurements and LV Function: LVID (d) 6.0 cm Planimetered EF 72 % LVID (s) 3.8 cm LV FS% (2D) ? 37 % IVS (d) ??1.0 cm LVOT diameter ?? 2.3 cm LVPW (d) 0.8 cm HR ?135 bpm Ao Sinus 3.5 cm LA Vol index ?75 ml/m2 Asc Ao ?? 3.7 cm RA Vol index ?75 ml/m2 LA ? 4.9 cm RA area ? 35 cm?RV Max 4C (d) ?? 5.9 cm Diastology: Mitral ? Tissue Doppler ?Pulmonary veins E Peak 1.2 m/s e', Lateral ?0.27 m/s Pulm s ?64.1 cm/s A Peak 1.4 m/s ? Pulm d ?121.0 cm/s E/A ?0.9 ? Pulm s/d ratio ??0.53 DT ? 79 msec Aortic Valve: Vmax ? 2.6 m/s ??ARELY (V) ?? 3.16 cm? ? ? VTI ?0.33 m ?? ARELY (I) ?? 3.35 cm? ? ? LVOT V max 2.0 m/s ??Max PG ?27 mmHg LVOT VTI ?? 0.27 m ?? Mean PG ?? 15 mmHg SV ? 111 ml ?? Dim Index 0.81 SV index ?? 57 ml/m? ? ? CO ?15.0 l/min ?CI ?7.7 l/min/m? ? ? Mitral Valve: MVA ? 9.6 cm? ? ? MR TVI 0.99 m MV P 1/2 ??23 msec MV Mean G 6 mmHg Tricuspid Valve and estimated PA pressures: TR Vmax 4.4 m/s TV Mean G 3 mmHg TR maxG 77 mmHg TAPSE ? 2.9 cm Pulmonic Valve: PV Vmax ??1.8 m/s PV meanG 9 mmHg PV VTI ?? 0.25 m PV AT ?55 msec . This study was interpreted by an [facility] accredited facility. ??Final ?? Procedure Note Josiah Alves MD - 03/30/2024 ECHOCARDIOGRAM YAHAIRA CHOWDHURY : 1995 28 years Study Date: 03/30/2024 10:35:23 AM Gender: M BP: 149/83 mmHg Height: 175.00 cm BSA: 1.96 m? ? ? Weight: 80.00 kg Tech: Referring MD: BERTHA GALLEGO Site: [facility] Reading Location: [facility] Patient Location: Inpatient. Procedure: 2D, 3D Imaging, Color Doppler and Spectral Doppler. Indication for study: concern for endocarditis Cardiac Rhythm: Sinus tachycardia.Study quality: Good. Final Impressions: 1. Mild to moderately increased left ventricular size, normal wallthickness, normal global systolic function, calculated EF of 72 %. 2. Right ventricular cavity size is severely enlarged, global systolic RVfunction is normal. Mobile density seen in the basal RV septal wall,adjacent to the aortic root. 3. The mitral valve is degenerative and thicknened, moderate to severemitral regurgitation. There is a mobile echodensity structure in theposterior leaflet of the mitral, measuring 0.6 cm x 0.6 cm. 4. Moderate-severe tricuspid regurgitation. 5. 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 6. Severely increased estimated pulmonary pressures by tricuspidregurgitation velocity and right atrial pressure (77 mmHg plus RAP). Comparison There are no prior studies on this patient for comparison purposes. Chamber Sizes and Function Mild to moderately increased left ventricular size, normal wall thickness,normal global systolic function, calculated EF of 72 %. Left atrial sizeis severely enlarged. Right ventricular cavity size is severely enlarged,global systolic RV function is normal. The right atrium is severelyenlarged. Right atrial volume index is 75 ml/m? ? ?. Right atrial area is 35cm? ? ?. The pulmonary artery is of normal size and origin. The sinus ofValsalva is normal sized. The ascending aorta is normal sized. Valves, RV Pressures and Diastolic Function The aortic valve is trileaflet, mild stenosis and no regurgitation. Themitral valve is degenerative, moderate to severe mitral regurgitation.Indeterminate pattern of LV diastolic filling. The tricuspid valve isdegenerative in appearance. Tricuspid regurgitation is moderate-severe.The tricuspid regurgitant velocity is 4.4 m/s, the estimated rightventricular systolic pressure is 77 mmHg plus right atrial pressure. Thereis severely increased estimated pulmonary pressure by tricuspidregurgitation velocity and right atrial pressure. The pulmonic valve isnormal. Mild pulmonary regurgitation. Pulmonary veins show a systolicblunting flow pattern. Masses, Effusion, Shunts There is no pericardial effusion. The inferior vena cava is dilated,respiratory size variation plethora. No left to right shunting wasdetected by limited color flow Doppler interrogation of the interatrialseptum. MEASUREMENTS AND CALCULATIONS 2-D Measurements and LV Function: LVID (d) 6.0 cm Planimetered EF 72 % LVID (s) 3.8 cm LV FS% (2D) 37 % IVS (d) 1.0 cm LVOT diameter 2.3 cm LVPW (d) 0.8 cm HR 135 bpm Ao Sinus 3.5 cm LA Vol index 75 ml/m2 Asc Ao 3.7 cm RA Vol index 75 ml/m2 LA 4.9 cm RA area 35 cm? ? ? RV Max 4C (d) 5.9 cm Diastology: Mitral Tissue Doppler Pulmonary veins E Peak 1.2 m/s e', Lateral 0.27 m/s Pulm s 64.1 cm/s A Peak 1.4 m/s Pulm d 121.0 cm/s E/A 0.9 Pulm s/d ratio 0.53 DT 79 msec Aortic Valve: Vmax 2.6 m/s ARELY (V) 3.16 cm? ? ? VTI 0.33 m AERLY (I) 3.35 cm? ? ? LVOT V max 2.0 m/s Max PG 27 mmHg LVOT VTI 0.27 m Mean PG 15 mmHg SV 111 ml Dim Index 0.81 SV index 57 ml/m? ? ? CO 15.0 l/min CI 7.7 l/min/m? ? ? Mitral Valve: MVA 9.6 cm? ? ? MR TVI 0.99 m MV P 1/2 23 msec MV Mean G 6 mmHg Tricuspid Valve and estimated PA pressures: TR Vmax 4.4 m/s TV Mean G 3 mmHg TR maxG 77 mmHg TAPSE 2.9 cm Pulmonic Valve: PV Vmax 1.8 m/s PV meanG 9 mmHg PV VTI 0.25 m PV AT 55 msec . This study was interpreted by an [facility] accredited facility. Final Bertha Gallego MD ECHO ORD * MRSA/SA PCR (03/30/2024 10:11 AM CDT) Pathologist [facility] MRSA DNA PCR Negative Negative 03/30/2024 12:05 PM CDT [facility] STAPHYLOCOCCUS AUREUS PCR Negative Negative 03/30/2024 12:05 PM CDT [facility]- [facility] Other SPECIMEN FROM INTERNAL NOSE / Unknown Non-Blood / Unknown 03/30/2024 10:11 AM CDT 03/30/2024 10:23 AM CDT Narrative [facility] 03/30/2024 12:05 PM CDT Test result does not preclude MRSA or SA nasal colonization. Mimi COLLIER MICROBIOLOGY [facility] [address] [place] [address], * SCAN-CARDIAC STRIP (03/30/2024 8:52 AM CDT) Scanner OTHER * RUQ ultrasound today (03/30/2024 8:25 AM CDT) Anatomical Region Laterality Modality Abdomen, LIVER, KIDNEYS, PANCREAS, GALLBLADDER, SPLEEN Ultrasound 03/30/2024 8:38 AM CDT Impressions 03/30/2024 8:38 AM CDT 1. Diffuse significant gallbladder wall thickening and hyperechogenicity. No gallstones. Favor hydropic gallbladder which can be seen in multiple systemic conditions including several viral infections as well as hepatocellular disease. 2. Pericholecystic edema is a nonspecific finding, also seen in multiple systemic conditions and in the setting of volume resuscitation. 3. Borderline hyperechoic renal parenchyma suggestive of medical renal disease. Dictated by Sherita Mckeon MD @ 03/30/2024 8:38:11 AM (Electronically Signed) Narrative 03/30/2024 8:38 AM CDT For Patients: ??As a result of the Cures Act, medical imaging exams and procedure reports are released immediately into your electronic medical record. ??You may view this report before your referring provider. ??If you have questions, please contact your health care provider. INDICATION: Gallbladder wall edema, sepsis COMPARISON: Spine MRI 03/30/2024 TECHNIQUE: Brush-scale and color Doppler ultrasound of the right upper quadrant. FINDINGS: Pancreas: Well seen and normal. Liver: Normal hepatic echogenicity and normal echotexture. Liver appears mildly enlarged measures 19 centimeters in length. Periportal hyperechogenicity. No mass. Patent portal vein with normal directional flow. Gallbladder and bile ducts: The gallbladder is distended. The gallbladder wall is diffusely edematous and thickened, measuring up to 4 millimeters. The gallbladder wall is diffusely echogenic. No stones or sludge. Negative sonographic Jones`s sign. No intrahepatic or extrahepatic biliary ductal dilatation. The common bile duct measures 5 mm. RIGHT Kidney: Renal length: 13.3 cm Parenchyma: Normal thickness and diffusely increased echogenicity. Cyst: None Mass: None Calculi: None Urinary tract: Not dilated. Abdominal aorta: Normal. No aneurysm. Ascites: None. Procedure Note Sherita Mckeon MD - 03/30/2024 For Patients: As a result of the Cures Act, medical imagingexams and procedure reports are released immediately into your electronicmedical record. You may view this report before your referring provider.If you have questions, please contact your health care provider. INDICATION: Gallbladder wall edema, sepsis COMPARISON: Spine MRI 03/30/2024 TECHNIQUE: Brush-scale and color Doppler ultrasound of the right upper quadrant. FINDINGS: Pancreas: Well seen and normal. Liver: Normal hepatic echogenicity and normal echotexture. Liver appearsmildly enlarged measures 19 centimeters in length. Periportalhyperechogenicity. No mass. Patent portal vein with normal directionalflow. Gallbladder and bile ducts: The gallbladder is distended. The gallbladderwall is diffusely edematous and thickened, measuring up to 4 millimeters.The gallbladder wall is diffusely echogenic. No stones or sludge. Negativesonographic Jones`s sign. No intrahepatic or extrahepatic biliary ductaldilatation. The common bile duct measures 5 mm. RIGHT Kidney: Renal length: 13.3 cm Parenchyma: Normal thickness and diffusely increased echogenicity. Cyst: None Mass: None Calculi: None Urinary tract: Not dilated. Abdominal aorta: Normal. No aneurysm. Ascites: None. IMPRESSION: 1. Diffuse significant gallbladder wall thickening and hyperechogenicity.No gallstones. Favor hydropic gallbladder which can be seen in multiplesystemic conditions including several viral infections as well ashepatocellular disease. 2. Pericholecystic edema is a nonspecific finding, also seen in multiplesystemic conditions and in the setting of volume resuscitation. 3. Borderline hyperechoic renal parenchyma suggestive of medical renaldisease. Dictated by Sherita Mckeon MD @ 03/30/2024 8:38:11 AM (Electronically Signed) Jaclyn Pugh MD US * MR Spine Thoracic w/wo Contrast (03/30/2024 6:01 AM CDT) Anatomical Region Laterality Modality Spine, THORACIC SPINE Magnetic R esonance 03/30/2024 8:14 AM CDT Narrative 03/30/2024 8:14 AM CDT For Patients: ??As a result of the 21st Century Cures Act, medical imaging exams and procedure reports are released immediately into your electronic medical record. ??You may view this report before your referring provider. ??If you have questions, please contact your health care provider. Indication: Thoracic spine pain. Infection suspected. Technique: Multiplanar, multisequence MRI of the thoracic spine was performed without and with the use of ??intravenous contrast. Contrast: 20 cc Clariscan. Comparison: None relevant available at the time of interpretation. Findings: The vertebral body heights are maintained without evidence of fracture. Small multilevel Schmorl`s node deformities. No marrow infiltrative process. Disc space heights are preserved. No spondylolisthesis. There is edema noted within the right T5 inferior articular facet, with edema and abnormal enhancement extending into the surrounding soft tissues. No abnormal cord signal. No abnormal intraspinal enhancement. No overt evidence of spinal canal or neuroforaminal compromise throughout the thoracic spine. Impression: 1. Abnormal edema and enhancement at the right T5 inferior articular facet, extending into the surrounding soft tissues. This may represent active facet degeneration or the possibility of septic arthritis given clinical concerns for infection. 2. No spinal canal or neural foraminal stenosis. 3. No intraspinal abnormality identified. Dictated by Ramez Shepherd MD @ 03/30/2024 8:05:32 AM (Electronically Signed) Procedure Note Ramez Shepherd DO - 03/30/2024 For Patients: As a result of the Century Cures Act, medical imagingexams and procedure reports are released immediately into your electronicmedical record. You may view this report before your referring provider.If you have questions, please contact your health care provider. Indication: Thoracic spine pain. Infection suspected. Technique: Multiplanar, multisequence MRI of the thoracic spine was performed withoutand with the use of intravenous contrast. Contrast: 20 cc Clariscan. Comparison: None relevant available at the time of interpretation. Findings: The vertebral body heights are maintained without evidence of fracture.Small multilevel Schmorl`s node deformities. No marrow infiltrativeprocess. Disc space heights are preserved. No spondylolisthesis. There is edema noted within the right T5 inferior articular facet, withedema and abnormal enhancement extending into the surrounding softtissues. No abnormal cord signal. No abnormal intraspinal enhancement. No overt evidence of spinal canal or neuroforaminal compromise throughoutthe thoracic spine. Impression: 1. Abnormal edema and enhancement at the right T5 inferior articularfacet, extending into the surrounding soft tissues. This may representactive facet degeneration or the possibility of septic arthritis givenclinical concerns for infection. 2. No spinal canal or neural foraminal stenosis. 3. No intraspinal abnormality identified. Dictated by Ramez Shepherd MD @ 03/30/2024 8:05:32 AM (Electronically Signed) Jaclyn Pugh MD MR * MR Spine Lumbarl w/wo Contrast (03/30/2024 6:01 AM CDT) Anatomical Region Laterality Modality Spine, LUMBAR SPINE Magnetic Res onance 03/30/2024 8:13 AM CDT Narrative 03/30/2024 8:13 AM CDT For Patients: ??As a result of the Cures Act, medical imaging exams and procedure reports are released immediately into your electronic medical record. ??You may view this report before your referring provider. ??If you have questions, please contact your health care provider. Indication: Low back pain. Infection suspected. Technique: Multiplanar, multisequence MRI of the lumbar spine was performed without and with intravenous contrast. Contrast: 20 cc Clariscan. Comparison: None relevant available. Findings: There are 5 lumbar-type vertebral segments are identified. There is abnormal STIR hyperintensity and enhancement surrounding the left L2-3 facet joint. There is a facet joint effusion, with loculated fluid collection measuring up to 2.2 x 2.1 cm (TR x AP) identified within the left posterior paraspinal musculature. The conus medullaris terminates at L1, normal. Cauda equina appears unremarkable. T12-L1: No spinal canal or neural foraminal stenosis. L1-2: No spinal canal or neural foraminal stenosis. L2-3: No spinal canal or neural foraminal stenosis. L3-4: No spinal canal narrowing. Mild left neural foraminal narrowing secondary to disc bulge. L4-5: No spinal canal or neural foraminal stenosis. L5-S1: ??No spinal canal or neural foraminal stenosis. The visualized sacroiliac joints appear patent. Small left renal cyst. Impression: 1. Findings concerning for left L2-3 septic facet arthritis, with loculated abscess measuring up to 2.2 cm within the left posterior paraspinal musculature. 2. No spinal canal or neural foraminal stenosis. No abnormal intraspinal enhancement. Dictated by Ramez Shepherd MD @ 03/30/2024 8:13:53 AM (Electronically Signed) Procedure Note Ramez Shepherd, DO - 03/30/2024 For Patients: As a result of the Cures Act, medical imagingexams and procedure reports are released immediately into your electronicmedical record. You may view this report before your referring provider.If you have questions, please contact your health care provider. Indication: Low back pain. Infection suspected. Technique: Multiplanar, multisequence MRI of the lumbar spine was performed withoutand with intravenous contrast. Contrast: 20 cc Clariscan. Comparison: None relevant available. Findings: There are 5 lumbar-type vertebral segments are identified. There isabnormal STIR hyperintensity and enhancement surrounding the left L2-3facet joint. There is a facet joint effusion, with loculated fluidcollection measuring up to 2.2 x 2.1 cm (TR x AP) identified within theleft posterior paraspinal musculature. The conus medullaris terminates at L1, normal. Cauda equina appearsunremarkable. T12-L1: No spinal canal or neural foraminal stenosis. L1-2: No spinal canal or neural foraminal stenosis. L2-3: No spinal canal or neural foraminal stenosis. L3-4: No spinal canal narrowing. Mild left neural foraminal narrowingsecondary to disc bulge. L4-5: No spinal canal or neural foraminal stenosis. L5-S1: No spinal canal or neural foraminal stenosis. The visualized sacroiliac joints appear patent. Small left renal cyst. Impression: 1. Findings concerning for left L2-3 septic facet arthritis, withloculated abscess measuring up to 2.2 cm within the left posteriorparaspinal musculature. 2. No spinal canal or neural foraminal stenosis. No abnormal intraspinalenhancement. Dictated by Ramez Shepherd MD @ 03/30/2024 8:13:53 AM (Electronically Signed) Jaclyn Pugh MD MR * Blood culture (03/30/2024 4:38 AM CDT) Only the most recent of2 resultswithin the time period is included. Pathologist [facility] CULTURE No Growth. 04/04/2024 5:41 AM CDT [facility] Blood BLOOD SPECIMEN / Unknown Venipuncture / Unknown 03/30/2024 4:38 AM CDT 03/30/2024 5:00 AM CDT Jaclyn Pugh MD MICROBIOLOGY Performing Organization Address City/[facility]/ZIP Co de Phone Number [facility] [address] [place] [address], * Lactate TODAY (03/30/2024 4:32 AM CDT) Pathologist [facility] LACTATE,VENOUS 0.9 0.5 - 2.0 mmol/L 03/30/2024 5:34 AM CDT [facility] Blood BLOOD SPECIMEN / Unknown Venipuncture / Unknown 03/30/2024 4:32 AM CDT 03/30/2024 4:59 AM CDT Jaclyn Pugh MD CHEMISTRY Performing Organization Address [facility] Co de Phone Number [facility] [address] [place] [address], [place] * (ABNORMAL) CBC no diff TODAY (03/30/2024 4:32 AM CDT) [facility] WHITE BLOOD COUNT 14.7(H) 4.5 - 11.0 thou/cu mm 03/30/2024 5:08 AM CDT [facility] RED BLOOD COUNT 3.77(L) 4.30 - 5.90 mil/cu mm 03/30/2024 5:08 AM CDT [facility] HEMOGLOBIN 10.2(L) 13.5 - 17.5 g/dL 03/30/2024 5:08 AM CDT [facility] HEMATOCRIT 29.9(L) 37.0 - 53.0 % 03/30/2024 5:08 AM CDT [facility] MCV 79(L) 80 - 100 fL 03/30/2024 5:08 AM CDT [facility] MCH 27.1 26.0 - 34.0 pg 03/30/2024 5:08 AM CDT [facility] MCHC 34.1 32.0 - 36.0 g/dL 03/30/2024 5:08 AM CDT [facility] RDW 13.9 11.5 - 15.5 % 03/30/2024 5:08 AM CDT [facility] PLATELET COUNT 133(L) 140 - 440 thou/cu mm 03/30/2024 5:08 AM CDT [facility] MPV 11.4(H) 6.5 - 11.0 fL 03/30/2024 5:08 AM CDT [facility] NRBC 0.0 % 03/30/2024 5:08 AM CDT [facility] ABS NRBC 0.0 thou /cu mm 03/30/2024 5:08 AM CDT [facility] Blood BLOOD SPECIMEN / Unknown Venipuncture / Unknown 03/30/2024 4:32 AM CDT 03/30/2024 5:00 AM CDT Jaclyn Pugh MD HEMATOLOGY Performing Organization Address City/State/[facility] Co de Phone Number [facility] [address] [place] [address], * ANTI HIV 1/2 (03/30/2024 4:32 AM CDT) HIV-1/HIV-2 SCREEN Non-Reacti ve Non-Reacti ve 03/30/2024 4:59 PM CDT [facility] Comment:HIV-1 p24 and HIV-1/ HIV-2 Ab Not Detected. Blood BLOOD SPECIMEN / Unknown Venipuncture / Unknown 03/30/2024 4:32 AM CDT 03/30/2024 4:59 AM CDT Sena Lopez MD [facility] [address] [address], * (ABNORMAL) REFERRAL SUSCEPTIBILITY (03/29/2024 7:28 PM CDT) CULTURE RESULT(A) 04/03/2024 8:05 AM CDT [facility] CULTURE Streptococcus pneumoniae 04/03/2024 8:05 AM CDT [facility] Other BLOOD SPECIMEN / Unknown Client Collect / Unknown 03/29/2024 7:28 PM CDT 04/02/2024 1:22 PM CDT Narrative Organism Antibiotic Method Susceptibility Streptococcus pneumoniae PENICILLIN-ORAL 0.25: I Streptococcus pneumoniae [id number] 0.25: R Streptococcus pneumoniae [id number] 0.25: S Streptococcus pneumoniae CEFTRIAXONE-MENINGIT 0.5: S Streptococcus pneumoniae CEFTRIAXONE-NONMENIN 0.5: S Streptococcus pneumoniae VANCOMYCIN 0.5: S Streptococcus pneumoniae LEVOFLOXACIN 0.5: S Streptococcus pneumoniae TRIMETHOPRIM/SULF 8/152: R Streptococcus pneumoniae AZITHROMYCIN R Streptococcus pneumoniae CLARITHROMYCIN R Doctor Unknown MICROBIOLOGY Performing Organization Address City/[facility]/ZIP Co de Phone Number [facility] [address] [address], from Last 3 Months Advance Directives * Full Code (Latest Code Status on File) Date Activated Date Inactivated Comments 03/30/2024 2:26 AM 04/05/2024 4:31 PM Question Answer Comments Code Status Discussion: Reviewed Preferences * Full Code Date Activated Date Inactivated Comments 12/28/2022 9:06 PM 12/30/2022 2:00 AM Question Answer Comments Code Status Discussion: Reviewed Preferences * Full Code Date Activated Date Inactivated Comments 03/13/2009 6:42 AM 03/13/2009 7:45 PM * Full Code Date Activated Date Inactivated Comments 03/11/2009 11:36 AM 03/13/2009 6:42 AM Care Teams Firearms Inspector Relationship Specialty [place] [id number] [facility] [address] [phone] PCP - General Family Practice 04/17/24 [facility] [address] [place], [place] [phone] 04/05/24
== END 2024-03-30 00:56 | disposition home or self-care (01) ==
LOC: AMB 04-18 00:58
PROVIDERS: Visit Provider Internal Medicine
DX: I38 Endocarditis, valve unspecified (principal)
CPT/HCPCS: A0425; A0427